=== PATIENT | male | born 1970 | race Caucasian/White ===

== ENCOUNTER 2024-04-22 20:11 | Emergency (ER) | payer OTHER, SELFPAY ==
[2024-04-22 20:13] VITALS: BP 136/95; PULSE 103; RESP 18; TEMP 36.6; O2SAT 97
--- OUTSIDE RECORDS SUMMARY | 2024-04-22 20:14 | XMS_ITS | Clinical Summary ---
Author Organization [facility] [place] [facility] [place] [address] Address [address] [place] [address] Care Team Providers Care Wrapping Machine Operator Name Role Phone Alicia Palacio NP Primary Care Provider Allergies No known active allergies Medications blood glucose diagnostic strip 2 (two) times a day 018 Active omega 3-nxh-yjv-fish oil 100-160-1,000 mg capsule 1,000 mg 2 (two) times a day Active diazePAM (VALIUM) 5 mg tabletIndications :Radiculopathy of cervical region Take 1 tablet (5 mg total) by mouth daily as needed for anxiety 4 tablet 023 Active Additional Information Patient not taking.Reported on 02/16/2023 cyclobenzaprine (FLEXERIL) 10 mg tablet Take 1 tablet (10 mg total) by mouth 3 (three) times a day as needed 024 Active clopidogreL (PLAVIX) 75 mg tablet Take 1 tablet (75 mg total) by mouth daily 90 tablet 3 024 Active empagliflozin (Jardiance) 25 mg tablet Take 1 tablet (25 mg total) by mouth daily 90 tablet 3 024 Active aspirin 325 mg tablet Take 1 tablet (325 mg total) by mouth daily Active insulin glargine (LANTUS) 100 unit/mL (3 mL) pen for injectionIndicati ons:Type 2 diabetes mellitus without complication, without long-term current use of insulin ([facility]) ([facility]) Inject 25 Units under the skin daily 15 mL 6 024 Active pen needle, diabetic 31 gauge x 5/16 needleIndications :Type 2 diabetes mellitus without complication, without long-term current use of insulin ([facility]) ([facility]) USE ONCE DAILY DIRECTED 100 each 6 Active pregabalin (LYRICA) 75 mg capsule Take 1 capsule (75 mg total) by mouth 2 (two) times a day 60 capsule 5 024 2024 Active glipiZIDE (GLUCOTROL) 5 mg tabletIndications :Type 2 diabetes mellitus without complication, without long-term current use of insulin ([facility]) ([facility]) Take 2 tablets by mouth twice daily before breakfast and lunch. 120 tablet 5 024 Active lisinopriL (PRINIVIL,ZESTRIL ) 10 mg tabletIndications :Essential hypertension Take 1 tablet by mouth once daily 90 tablet 025 Active atorvastatin (LIPITOR) 10 mg tabletIndications :Mixed hyperlipidemia Take 1 tablet by mouth once daily 90 tablet 025 Active metFORMIN (GLUCOPHAGE) 1,000 mg tabletIndications :Type 2 diabetes mellitus without complication, without long-term current use of insulin ([facility]) ([facility]) TAKE 1 TABLET BY MOUTH TWICE DAILY WITH MEALS 180 tablet 025 Active gemfibroziL (LOPID) 600 mg tabletIndications :Mixed hyperlipidemia Take 1 tablet by mouth twice daily 180 tablet 025 Active Mounjaro 2.5 mg/0.5 mL pen injector injectionIndicati ons:Type 2 diabetes mellitus with hyperglycemia, without long-term current use of insulin ([facility]) INJECT 2.5 MG SUBCUTANEOUSLY ONCE A WEEK 4 mL 025 Active Mounjaro 2.5 mg/0.5 mL pen injectorIndicatio ns:Type 2 diabetes mellitus with hyperglycemia, without long-term current use of insulin ([facility]) INJECT 1 SYRINGE SUBCUTANEOUSLY ONCE A WEEK 4 mL 024 2024 Discontinued Active Problems Problem Noted Date Diagnosed Date History of TIA (transient ischemic attack) 06/04 Overview (06/05/2023): Risk factor modification Sensorineural hearing loss (SNHL) of both ears 1 04/19/2022 Noise-induced hearing loss of both ears 02/17/20 Type 2 diabetes mellitus with hyperglycemia (CMS /HCC) 01/06/2022 Axillary abscess 09/03/2021 COVID-19 01/18/2020 Annual physical exam 01/24/2019 Assessment & Plan (02/19/2023 3:45 PM SPEECH ASSISTANT): Follow-up 1 year for annual physical. Continue eating healthy. Limit processed foods like white starches, fast food, sweets and soda. Increase your vegetable intake and limit red meat. Continue exercising and wearing your seatbelt at all times. No texting and driving. Continue to manage your stress in a healthy manner. Assessment & Plan (01/06/2022 9:17 AM CDT): Follow-up 1 year for annual physical. Continue eating healthy. Limit processed foods like white starches, fast food, sweets and soda. Increase your vegetable intake and limit red meat. Continue exercising and wearing your seatbelt at all times. No texting and driving. Continue to manage your stress in a healthy manner. Assessment & Plan (01/24/2019 9:20 AM SPEECH ASSISTANT): Follow-up 1 year for annual physical. Continue eating healthy. Limit processed foods like white starches, fast food, sweets and soda. Increase your vegetable intake and limit red meat. Continue exercising and wearing your seatbelt at all times. No texting and driving. Continue to manage your stress in a healthy manner. History of tetralogy of Fallot 01/24/2019 Radiculopathy of cervical region 04/04/2018 Sciatica of left side 12/19/2016 Essential hypertension 08/31/2014 Hyperlipidemia 08/31/2014 Type 2 diabetes mellitus wit hout complication, without long-term current use of insulin ([facility]) 08/31/2014 Immunizations Name Administration Dates Next Due Influenza, Unspecified 11/29/2023(Deferr ed: Patient Refused),01/17/2023(Deferred: Patient Refused),06/08/2022(Deferred: Patient Refused),04/13/2022(Deferred: Patient Refused) Tdap 06/06/2023 Surgical History Surgery Date Site/Laterality Comments TYMPANOSTOMY TUBE PLACEMENT 03/12/1979 - 03/11/1980 Guero shirley Medical History Medical History Date Comments Hyperlipidemia Hypertension Diabetes mellitus (HCC) Tetralogy of Fallot Heart disease HL (hearing loss) Type 2 diabetes mellitus (HCC) Family History Medical History Relation Name Comments Diabetes Father Hypertension Father Stroke Father Cancer Mother Diabetes Mother Hemochromatosis Mother Relation Name Status Comments Father Alive Mother Social History Tobacco Use Types Packs/Day Years Used Date Smoking Tobacco: Former Cigarettes 1 2011 Smokeless Tobacco: Never Tobacco Cessation:Counseling Given: Not Answered Alcohol Use Standard Drinks/Week Comments Never 0 (1 standard drink = 0.6 oz pur e alcohol) AUDIT-C Answer Date Recorded Frequency of Alcohol Consumption Not on file 04/12/2023 Q2: How many drinks containi ng alcohol do you have on a typical day when you are drinking? Patient does not drink Q3: How often do you have si x or more drinks on one occasion? Never 04/12/2023 PHQ-2 Answer Date Recorded PHQ-2 Total Score (If total score is 3 or more points, staff should administer the PHQ-9) 0 11/29/2023 Personal Safety Answer Date Recorded Getting School Help Needed Not on file 02/19 Sex and Gender Information Value Date Recorded Sex Assigned at Not on file Legal Sex Male 6:41 PM SPEECH ASSISTANT Gender Identity Not on file Sexual Orientation Not on file Obstetrics History Last Filed Vital Signs Vital Sign Reading Time Taken Comments Blood Pressure 122/74 11/29/2023 3:18 PM CDT Pulse 88 11/29/2023 3:18 PM CDT Temperature 36.6 C (97.9 F) 11/29/2023 3:18 PM CDT Respiratory Rate 18 11/29/2023 3:18 PM CDT Oxygen Saturation 97% 11/29/2023 3:18 PM CDT Inhaled Oxygen Concentration - - Weight 90.3 kg (199 lb) 11/29/2023 3:18 PM CDT Height 177.8 cm (5' 10 ) 11/29/2023 3:18 PM CDT Body Mass Index 28.55 11/29/2023 3:18 PM CDT Plan of Treatment Health Maintenance Due Date Last Done Comments Colon Cancer Screening-DNA Stool 1971 Hepatitis C Screening 1971 Dilated Eye Exam 1971 Pneumococcal vaccine <65 (1 of 2 - PCV) 1977 Hepatitis B Screening 1989 Zoster Vaccine (1 of 2) 2021 Foot Exam 01/27/2024 01/26/2023, 05/07/2022, 04/13/2022, Additional history exists Regular Well Visit/Exam 18-64 01/27/2024 01/26/2023, 01/06/2022, 01/24/2019 Hemoglobin A1C 05/26/2024 11/27/2023, 05/10, 01/22/2023, Additional history exists Influenza Vaccine (#1) 2024 Postp oned from 11/11/2023 (Patient declined, but will receive in the future) Albumin Creatinine Ratio, Urine 11/26/2024 11/27/2023, 01/22/2023, 01/02/2022 Lipid Panel 11/26/2024 11/27/2023, 01/10, 07/11/2022, Additional history exists eGFR 11/26/2024 11/27/2023, 05/10, 01/22/2023, Additional history exists Depression Screening 11/28/2024 11/29/2023, 08/16/2022, 09/13/2021, Additional history exists Prostate Cancer Screening-PSA 11/26/2025 11/27/2023, 01/22/2023, 01/02/2022, Additional history exists DTaP/Tdap/Td Vaccine (2 - Td or Tdap) 06/05/2033 06/06/2023 Procedures Procedure Name Priority Date/Time Associated Diagnosis Comments EGFR Routine 11/27/2023 6:09 AM CDT Type 2 diabetes mellitus with hyperglycemia, without long-term current use of insulin (CMS/HCC) (HCC) HEMOGLOBIN A1C Routine 11/27/2023 6:09 AM CDT Type 2 diabetes mellitus with hyperglycemia, without long-term current use of insulin (CMS/HCC) (HCC) LIPID PANEL Routine 11/27/2023 6:09 AM CDT Mixed hyperlipidemia PSA SCREEN Routine 11/27/2023 6:09 AM CDT Prostate cancer screening ALBUMIN CREATININE RATIO, URINE Routine 11/27/2023 6:06 AM CDT Type 2 diabetes mellitus with hyperglycemia, without long-term current use of insulin (CMS/HCC) (HCC) from Last 3 Months or Most Recently Relevant to Health Maintenance Results * eGFR (11/27/2023 6:09 AM CDT) eGFR >90 >=60 mL/min/1. 73 m2 Comment: Interpretive Data Reference Interval Normal >/= 90 mL/min/1.73m2 Mildly decreased* 60 - 89 mL/min/1.73m2 Mildly to moderately decreased 45 - 59 mL/min/1.73m2 Moderately to severely decreased 30 - 44 mL/min/1.73m2 Severely decreased 15 - 29 mL/min/1.73m2 Kidney Failure < 15 mL/min/1.73m2 *Relative to young adult level Estimated glomerular filtration rate is determined by the 2020 CKD-EPI equation recommended by the National Kidney Foundation (A Unifying Approach to GFR Estimation: Recommendations of the NKF-ASK Task Force on Reassessing the Inclusion of Race in Diagnosing Kidney Disease, JASN 2020). The CKD-EPI equation should not be used for patients with unstable renal function and has not been validated in children and those over 70. Current interpretive data was last reviewed 2021. Blood 11/27/2023 6:09 AM CDT 11/27/2023 7:57 AM CDT us Alicia Palacio NP LAB BLOOD ORDERABLES Fi nal Result [facility] [address] [facility] Department [place] [address] * PSA screen (11/27/2023 6:09 AM CDT) PSA-Total 0.26 <=3.90 ng/mL Comment: Interpretive Data AGE SEX REFERENCE INTERVAL 0 minutes-150 years Female None 0 minutes-49 years Male None 50-59 years Male 0-3.90 60-69 years Male 0-5.40 70-79 years Male 0-6.20 80-150 years Male 0-6.20 The Jessica PSA Total assay procedure was used. Results from different manufacturers or methods may not be comparable. Serial testing should be performed using the same method. Current interpretive data last revised 21. Blood 11/27/2023 6:09 AM CDT 11/27/2023 7:57 AM CDT Alicia Palacio LAB BLOOD ORDERABLES nal Result Performing Organization Address [facility] de Phone Number [address] [place] [address] * (ABNORMAL) Hemoglobin A1c (11/27/2023 6:09 AM CDT) Hgb A1C 8.8(H) 4.0 - 5.6 % Estimated Average Glucose 206 mg/dL [facility] Comment: The ADA recommends reporting an estimated Average Glucose (eAG) with all Hemoglobin A1c results using the equation derived from a study of 507 normal and diabetic adults. Minority populations were underrepresented and children were not included. (Diabetes Care 31:8106-4551, 2008). The eAG is not equivalent to a fasting glucose. Blood 11/27/2023 6:09 AM CDT 11/27/2023 7:57 AM CDT Alicia Palacio LAB BLOOD ORDERABLES nal Result Performing Organization Address [facility] de Phone Number [address] [place] [address] * (ABNORMAL) Lipid panel (11/27/2023 6:09 AM CDT) Cholesterol 147 30 - 199 mg/dL Comment: Interpretive Data Ages < or = 19 years Acceptable: <170 mg/dL Borderline high: 170-199 mg/dL High: >or= 200 mg/dL Ages > or = 20 years Desirable: <200 mg/dL Borderline high: 200-239 mg/dL High: >or= 240 mg/dL Literature References: 1. Expert Panel on Integrated Guidelines for Cardiovascular Health and Risk Reduction in Children and Adolescents. Pediatrics 2011;128:S213 2. NCEP Expert Panel. Circulation 2004;110:227 Current Interpretive Data was last revised on 2017. Triglycerides 169(H) <=149 mg/dL [facility] Comment: Interpretive Data Ages < or = 9 years Acceptable: <75 mg/dL Borderline high: 75-99 mg/dL High: >or= 100 mg/dL Ages 10 to 20 years Acceptable: <90 mg/dL Borderline high: 90-129 mg/dL High: >or= 130 mg/dL Ages > or = 20 years Desirable: <150 mg/dL Borderline high: 150-199 mg/dL High: 200-499 mg/dL Very high: >or= 499 mg/dL Literature References: 1. Expert Panel on Integrated Guidelines for Cardiovascular Health and Risk Reduction in Children and Adolescents. Pediatrics 2011;128:S213 2. NCEP Expert Panel. Circulation 2004;110:227 Current Interpretive Data was last revised on 2017. HDL 49 >=40 mg/dL [facility] Comment: Interpretive Data Ages < or = 19 years Acceptable: >45 mg/dL Borderline low: 40-45 mg/dL Low: <40 mg/dL Ages > or = 20 years Desirable: >or= 60 mg/dL Low: <40 mg/dL Literature References: 1. Expert Panel on Integrated Guidelines for Cardiovascular Health and Risk Reduction in Children and Adolescents. Pediatrics 2011;128:S213 2. NCEP Expert Panel. Circulation 2004;110:227 Current Interpretive Data was last revised on 2017. LDL, calculated 69 <=129 mg/dL [facility] Comment: Interpretive Data Ages < or = 19 years Acceptable: <110 mg/dL Borderline high: 110-129 mg/dL High: >or= 130 mg/dL Ages > or = 20 years Optimal: <100 mg/dL Near optimal: 100-129 mg/dL Borderline high: 130-159 mg/dL High: >160 mg/dL Calculated using the Padron LDL-C estimating equation. This equation was implemented on 2023. Prior to this date LDL-C was estimated using the Friedewald equation. Literature References: 1. Expert Panel on Integrated Guidelines for Cardiovascular Health and Risk Reduction in Children and Adolescents. Pediatrics 2011;128:S213 2. NCEP Expert Panel. Circulation 2004;110:227 3. Vito M et al. PARDEEP Cardiol. 2020 July 10;5(5):540-548. doi: 10.1001/jamacardio.2020.0013 Current Interpretive Data was last revised on 2023. Non-HDL Cholesterol 98 mg/dL [facility] Comment: Interpretive Data Ages < or = 19 years Acceptable: <120 mg/dL Borderline high: 120-144 mg/dL High: >145 mg/dL Ages > or = 20 years When triglycerides are >200 mg/dL, Non-HDL cholesterol is a secondary target of therapy with treatment goals that are 30 mg/dL greater than the LDL cholesterol target. Literature References: 1. Expert Panel on Integrated Guidelines for Cardiovascular Health and Risk Reduction in Children and Adolescents. Pediatrics 2011;128:S213 2. NCEP Expert Panel. Circulation 2004;110:227 Current Interpretive Data was last revised on 2017. Chol/HDL ratio 3 [facility] Blood 11/27/2023 6:09 AM CDT 11/27/2023 7:57 AM CDT us Alicia Palacio NP LAB BLOOD ORDERABLES nal Result [facility] [address] [facility] Department [place] [address] * (ABNORMAL) Albumin Creatinine Ratio, Urine (11/27/2023 6:06 AM CDT) Albumin Ur 26.2 mg/L Comment: Interpretive Data No reference range established. Current interpretive data was last revised 2018. Creatinine Ur 85.8 mg/dL [facility] Comment: Interpretive Data No reference range established. Current interpretive data was last revised 2018. Albumin Creatinine Ratio, Ur 31(H) 1 - 29 mg/g [facility] Urine 11/27/2023 6:06 AM CDT 11/27/2023 7:53 AM CDT Alicia Palacio NP LAB URINE ORDERABLES Fi nal Result [facility] [address] [facility] Department [place] [address] from Last 3 Months or Most Recently Relevant to Health Maintenance Insurance [facility] PLUS [facility] PLUS [facility] PLUS Care Teams Wrapping Machine Operator Relationship Specialty Start Date End Date Alicia Palacio NP [address] [address] PCP - General Family Practice 12/12/19
--- OUTSIDE RECORDS SUMMARY | 2024-04-22 20:14 | XMS_ITS | Clinical Summary ---
Author Organization [facility] Address [address] [place] [address] Care Team Providers Care Alterations Workroom Clerk Name Role Phone Alicia Palacio Primary Care Provider [phone] Allergies No known active allergies Medications atorvastatin (LIPITOR) 10 MG tablet Take 1 tablet (10 mg total) by mouth daily. Active TRULICITY 1.5 MG/0.5ML injection INJECT 1 SYRINGE SUBCUTANEOUSLY ONCE A WEEK Active JARDIANCE 25 MG tablet Take 1 tablet (25 mg total) by mouth daily. Active gemfibrozil (LOPID) 600 MG tablet Take 1 tablet (600 mg total) by mouth 2 (two) times daily. Active glipiZIDE (GLUCOTROL) 5 MG tablet TAKE 2 TABLETS BY MOUTH TWICE DAILY BEFORE BREAKFAST AND LUNCH Active LANTUS SOLOSTAR 100 UNIT/ML injection (PEN) INJECT 25 UNITS SUBCUTANEOUSLY ONCE DAILY 3 Active lisinopril (PRINIVIL) 10 MG tablet Take 1 tablet (10 mg total) by mouth daily. 3 Active metFORMIN (GLUCOPHAGE) 1000 MG tablet Take 1 tablet (1,000 mg total) by mouth 2 (two) times daily with meals. 3 Active RELION PEN NEEDLE 31G/8MM 31G X 8 MM Misc 2 (two) times daily. 3 Active Active Problems Problem Noted Date Diagnosed Date Axillary abscess 09/03/2021 COVID-19 01/18/2020 History of tetralogy of Fallot 01/24/2019 Radiculopathy of cervical region 04/04/2018 Essential hypertension 08/31/2014 Hyperlipidemia 08/31/2014 Type 2 diabetes mellitus wit hout complication, without long-term current use of insulin ([facility]) 08/31/2014 Immunizations Name Administration Dates Next Due Tdap (Boostrix) 06/06/2023 Family History Medical History Relation Comments Diabetes Father Cancer Mother Relation Status Comments Father Mother Social History Tobacco Use Types Packs/Day Years Used Date Smoking Tobacco: Former Cigarettes Q uit: 2011 Smokeless Tobacco: Never Tobacco Cessation:Counseling Given: Not Answered Alcohol Use Standard Drinks/Week Comments Not Currently 0 (1 standard drink = 0.6 oz pur e alcohol) AUDIT-C Answer Date Recorded Q1: How often do you have a drink containing alc ohol? Never 01/18/2020 Average Number of Drinks Not on file 020 Frequency of Binge Drinking Not on file 10/2019 PHQ-2 Answer Date Recorded Patient Health Questionnaire-2 Score 0 07/11/2022 Sex and Gender Information Value Date Recorded Sex Assigned at Not on file Legal Sex Male 2:30 AM CDT Gender Identity Not on file Sexual Orientation Not on file Last Filed Vital Signs Vital Sign Reading Time Taken Comments Blood Pressure 141/94 06/12/2023 6:45 PM CDT Pulse 76 06/12/2023 6:45 PM CDT Temperature 36.2 C (97.1 F) 06/12/2023 6:45 PM CDT Respiratory Rate 18 06/12/2023 6:45 PM CDT Oxygen Saturation 95% 06/12/2023 6:45 PM CDT Inhaled Oxygen Concentration - - Weight 86.2 kg (190 lb) 06/12/2023 6:45 PM CDT Height 177.8 cm (5' 10 ) 06/12/2023 6:45 PM CDT Body Mass Index 27.26 06/12/2023 6:45 PM CDT Plan of Treatment Health Maintenance Due Date Last Done Comments Colorectal Cancer Screening Colonoscopy (10 Years) 1971 Kidney Health Evaluation 1971 Annual Physical 1974 Pneumococcal Vaccine: Pediatrics (0 to 5 Years) and At-Risk Patients (6 to 64 Years) (1 of 2 - PCV) 1977 Diabetes: Retinopathy Eye Exam 1989 Hepatitis C 1989 Hepatitis B Vaccines (1 of 3 - 19+ 3-dose series) 1990 Zoster Vaccines (1 of 2) 2021 Lipid Panel 01/02/2023 01/02/2022, 08/11, 09/04/2021, Additional history exists PHQ-2 (Physician Inaja) 07/12/2023 07/11/2022 COVID-19 Vaccine ( season) 2023 Hemoglobin A1C 11/21/2023 05/21/2023, 01/10, 07/11/2022, Additional history exists Influenza Adult (#1) 2023 PHQ-2 (Physician Inaja) 03/12/2024 07/11/2022 DTaP, Tdap and Td Vaccines (2 - Td or Tdap) 06/05/2033 06/06/2023 Meningococcal B Vaccine Aged Out No l onger eligible based on patient's age to complete this topic Meningococcal Vaccine Aged Out No ankita madison eligible based on patient's age to complete this topic RSV Immunizations Under 20 Months Aged Out No longer eligible based on patient's age to complete this topic Goals Goal Patient Goal Type Associated Problems Recent Progress Patient-Stated? Author Safety - demonstrates understanding of home safety measures General No Edelmira Webster geological manager Procedure Name Priority Date/Time Associated Diagnosis Comments HEMOGLOBIN, GLYCOSYLATED Routine 09/05/2021 5:39 AM CDT LIPID PANEL Routine 09/04/2021 5:40 AM CDT from Last 3 Months or Most Recently Relevant to Health Maintenance Results * (ABNORMAL) HEMOGLOBIN, GLYCOSYLATED (09/05/2021 5:39 AM CDT) HGB A1C 14.6(H) <5.7 % 09/05/2021 8:55 AM CDT [facility] () [facility] Comment: ADA GUIDELINES 2010 5.7 TO 6.4% INCREASED RISK OF DIABETES > OR = 6.5% CONSISTENT WITH DIABETES [place] [address] ESTIMATED AVG GLUCOSE 372 mg/dL 09/05/2021 8:55 AM CDT [facility] 09/05/2021 5:39 AM CDT us Jagdeep Alcantar MD LABORATORY Final Result [facility] [address] [place] [address], * (ABNORMAL) LIPID PANEL (09/04/2021 5:40 AM CDT) CHOLESTEROL 218(H) <200 MG/DL 09/04/2021 7:12 AM CDT [facility] TRIGLYCERIDES 679(H) <150 MG/DL 09/04/2021 7:12 AM T [facility] HDL 42 >40.0 MG/DL 09/04/2021 7:12 AM T [facility] LDL (CALCULATED) TRIGLYCERIDES >400 MG/DL, SEE DIRECT LDL REPORT <100 MG/DL 09/04/2021 7:12 AM T [facility] Comment:TRIGLYCERIDE >400 IN VALIDATES FRACTIONATION. NON HDL CHOLESTEROL 176(H) <130 MG/DL 09/04/2021 7:12 AM T [facility] Comment: NOTE: WHEN THE TRIGLYCERIDES ARE >200 mg/dL, NON HDL C IS A SECONDARY TARGET OF THERAPY, WITH A GOAL 30 mg/dL HIGHER THAN THE IDENTIFIED LDL C GOAL. CHOL/HDL RATIO 5.2(H) 0.0 - 4.5 09/04/2021 7:12 AM T [facility] VLDL CALCULATION UNABLE TO CALCULATE RESULT 5 - 55 MG/DL 09/04/2021 7:12 AM T [facility] Comment:TRIGLYCERIDE >400 IN VALIDATES FRACTIONATION. LIPID INTERPRETATION 09/04/2021 7:12 AM T [facility] Comment: [facility] CONCENSUS REPORT RECOMMENDATIONS: ADULT CHILD LOW RISK: CHOLESTEROL <200 <170 TRIGLYCERIDE <150 --- HDL >=60 --- LDL <100 <110 BORDERLINE: CHOLESTEROL 200-239 170-199 TRIGLYCERIDE 150-199 --- HDL 40-59 --- LDL 100-159 110-129 HIGH RISK: CHOLESTEROL >=240 >=200 TRIGLYCERIDE >=200 --- HDL <40 --- LDL >=160 >=130 09/04/2021 5:40 AM CDT us Jagdeep Alcantar MD LABORATORY Final Result [facility] [address] [place] [address], from Last 3 Months or Most Recently Relevant to Health Maintenance Insurance [facility] Advance Directives Documents on File Type Date Recorded Patient Geochemical Manager Expl anation Legal Documents 05/23/2016 SLEGAL * Full Code (Latest Code Status on File) Date Activated Date Inactivated Comments 09/03/2021 7:01 PM 09/05/2021 4:38 PM * POLST Date Activated Date Inactivated Comments 01/18/2020 11:46 AM 01/20/2020 3:20 PM Question Answer Comments Cardiopulmonary Resuscitatio n (CPR) If patient has no pulse and is not breathing: ATTEMPT Resuscitation CPR Medical Interventions when N OT in Cardiopulmonary Arrest (If patient is found with a pulse and/or is breathing): Comfort Focused - Do NOT Intubate Artificially administered nutrition - Offer food by mouth, if feasible and desired: None - No Artificial Nutrition Documentation of discussion: [facility] Surrogate Decision Maker Alicja by phone does not want Intubation nor does the pt * Full Code Date Activated Date Inactivated Comments 01/18/2020 8:44 AM 01/18/2020 11:46 AM Care Teams Alterations Workroom Clerk Relationship Specialty Start Date End Date Alicia Palacio APNP PCP - General NURSE PRACTITIONER 11/22/20
--- OUTSIDE RECORDS SUMMARY | 2024-04-22 20:14 | XMS_ITS | Referral Summary ---
Author Organization [facility] [place] [address] Address [address] [place] [address] Care Team Providers Care Laborer Wrecking And Salvaging Name Role Phone Alicia Palacio NP Primary Care Provider Allergies No known active allergies Medications blood glucose diagnostic strip 2 (two) times a day 018 Active omega 9-ywe-dax-fish oil 100-160-1,000 mg capsule 1,000 mg 2 [...] complication, without long-term current use of insulin ([facility]/HCC) ([facility]) Inject 25 Units under the skin daily 15 mL 6 024 Active pen needle, diabetic 31 gauge x 5/16 needleIndications :Type 2 diabetes mellitus without complication, without long-term current use of insulin ([facility]) ([facility]) USE ONCE DAILY DIRECTED 100 each 6 Active pregabalin (LYRICA) 75 mg capsule Take 1 capsule (75 mg total) by mouth 2 (two) times a day 60 capsule 5 024 2024 Active glipiZIDE (GLUCOTROL) 5 mg tabletIndications :Type 2 diabetes mellitus without complication, without long-term current use of insulin ([facility]) ([facility]) Take 2 tablets by mouth twice daily [...] complication, without long-term current use of insulin ([facility]) ([facility]) TAKE 1 TABLET BY MOUTH TWICE DAILY WITH MEALS 180 tablet 025 Active gemfibroziL (LOPID) 600 mg tabletIndications :Mixed hyperlipidemia Take 1 tablet by mouth twice daily 180 tablet 025 Active Mounjaro 2.5 mg/0.5 mL pen injector injectionIndicati ons:Type 2 diabetes mellitus with hyperglycemia, without long-term current use of insulin ([facility]) INJECT 2.5 MG SUBCUTANEOUSLY ONCE A WEEK 4 mL 025 Active Mounjaro 2.5 mg/0.5 mL pen injectorIndicatio ns:Type 2 diabetes mellitus with hyperglycemia, without long-term current use of insulin ([facility]) INJECT 1 SYRINGE SUBCUTANEOUSLY ONCE A WEEK [...] 01/24/2019 Assessment & Plan (02/19/2023 3:45 PM TANDEM OPERATOR): Follow-up 1 year for annual physical. Continue [...] manner. Assessment & Plan (01/24/2019 9:20 AM TANDEM OPERATOR): Follow-up 1 year for annual physical. 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 Gender Identity Not on file Sexual Orientation [...] 11/29/2023 3:18 PM CDT Plan of Treatment Not on file Procedures Procedure Name Priority Date/Time Associated Diagnosis Comments EGFR Routine 11/27/2023 6:09 AM CDT Type 2 diabetes mellitus with hyperglycemia, without long-term current use of insulin ([facility]) ([facility]) HEMOGLOBIN A1C Routine 11/27/2023 6:09 AM CDT Type 2 diabetes mellitus with hyperglycemia, without long-term current use of insulin ([facility]) ([facility]) LIPID PANEL Routine 11/27/2023 6:09 AM CDT [...] LAB BLOOD ORDERABLES Fi nal Result RAMIRO [address] [facility] Department [place] [address] * PSA screen (11/27/2023 6:09 [...] AM CDT Alicia Palacio LAB BLOOD ORDERABLES Fi nal Result Performing Organization Address [facility] de Phone Number [address] [place] [address] * (ABNORMAL) Hemoglobin A1c (11/27/2023 6:09 AM CDT) Hgb A1C 8.8(H) 4.0 - 5.6 % Estimated Average Glucose 206 mg/dL [facility] Comment: The ADA recommends reporting an estimated Average Glucose (eAG) with all Hemoglobin A1c results using the equation derived from a study of 507 normal and diabetic adults. Minority populations were underrepresented and children were not included. (Diabetes Care 31:1288-9456, 2008). The eAG is not equivalent to a fasting glucose. Blood 11/27/2023 6:09 AM CDT 11/27/2023 7:57 AM CDT Alicia Palacio MANAGER LVN LAB BLOOD ORDERABLES Fi nal Result Performing Organization Address [facility] de Phone Number [address] [place] [address] * (ABNORMAL) Lipid panel (11/27/2023 6:09 AM CDT) Pathologist [facility] Cholesterol 147 30 - 199 mg/dL Comment: [...] NCEP Expert Panel. Circulation 2004;110:227 3. Vito Nassar et al. PARDEEP Cardiol. 2019July 10;5(5):540-548. doi: 10.1001/jamacardio.2020.0013 Current Interpretive Data was [...] last revised on 2017. Chol/HDL ratio 3 [facility] Blood 11/27/2023 6:09 AM CDT 11/27/2023 7:57 AM CDT Alicia Palacio NP LAB BLOOD ORDERABLES nal Result RAMIRO [address] [facility] [place] [address] * (ABNORMAL) Albumin Creatinine Ratio, Urine (11/27/2023 [...] NP LAB URINE ORDERABLES Fi nal Result ITANER [facility] [address] [facility] [place] [address] from Last 3 Months or Most Recently Relevant to Health Maintenance Insurance [facility] [employer] Care Teams Laborer Wrecking And Salvaging Relationship Specialty Start Date End Date Alicia Palacio NP [address] [facility] [address] [place] [address] PCP - General Family Practice 12/12/19
--- OUTSIDE RECORDS SUMMARY | 2024-04-22 20:14 | XMS_ITS | Encounter Summary ---
Author Organization [facility] Address [address] [place] [address] Care Team Providers Care Channel Partners Name Role Phone Ed Blevins DO Primary Care Provider [phone]- [phone] Alicia Palacio Primary Care Provider +1- [phone] Encounter Details Date Type Department Care Team (Latest Contact Info) Description 01/15/2018 Abstract [facility] Medical Group Krystin Cartwright MD Social History Tobacco Use Types Packs/Day Years Used Date Smoking Tobacco: Smoker, Current Status Unknown Sex and Gender Information Value Date Recorded Sex Assigned at Not on file Legal Sex Male 2:30 AM CDT Gender Identity Not on file Sexual Orientation Not on file documented as of this encounter Plan of Treatment Not on file documented as of this encounter Visit Diagnoses Not on filedocumented in this encounter Additional Health Concerns Infection Onset Date Last Indicated Resolved Time COVID-19 Rule Out 01/18/2020 01/18/2020 01/19/2020 10:56 PM MANAGER CLIENT SERVICE documented as of this encounter Care Teams Channel Partners Relationship Specialty Start Date End Date Ed Blevins DO PCP - General 03/20/16 01/17/20 Alicia Palacio APNP PCP - General NURSE PRACTITIONER 11/22/20 documented as of this encounter
--- NOTE | 2024-04-22 20:17 | ED.EYEPROB ---
HPI - Eye Problem General Chief complaint: Eye Problems Stated complaint: Eye Problem Time Seen by Provider: 04/22/24 20:17 Source: patient Mode of arrival: ambulatory Limitations: no limitations History of Present Illness HPI Narrative: grinding yesterday, possible foreign body at the left eye, patient washed and irrigated both eyes extensively . Still feels foreign body like feeling Related Data Home Medications ?Medication ?Instructions ?Recorded ?Confirmed ?Last Taken ?Type atorvastatin 10 mg tablet 10 mg PO DAILY 04/22/24 04/22/24 Unknown History glipizide 5 mg tablet 5 mg PO DAILY 04/22/24 04/22/24 Unknown History metformin 1,000 mg tablet 1,000 mg PO DAILY 04/22/24 04/22/24 Unknown History pregabalin 75 mg capsule 75 mg PO DAILY 04/22/24 04/22/24 Unknown History tirzepatide 2.5 mg/0.5 mL mg subcut 04/22/24 Unknown History subcutaneous pen injector (Mounjaro) Allergies Allergy/AdvReac Type Severity Reaction Status Date / Time No Known Allergies Allergy Verified 04/22/24 20:19 Review of Systems Review of Systems: All systems reviewed & are unremarkable except as noted in HPI and below Exam Narrative: General appearance: Well-developed, well-nourished Skin: Normal color Head: Normocephalic, nontraumatic Eyes: small foreign body less than 1 mm at the center of the pupil left eye otherwise within normal limit ENT: Oropharynx normal, ears normal, nose normal Neurologic: Alert and oriented ?3, Course Vital Signs Vital signs: Vital Signs Temperature 36.6 C 04/22/24 20:13 Pulse Rate 103 H 04/22/24 20:13 Respiratory Rate 18 04/22/24 20:13 Blood Pressure 136/95 H 04/22/24 20:13 Pulse Oximetry 97 04/22/24 20:13 Oxygen Delivery Room Air 04/22/24 20:13 Temperature 36.6 C 04/22/24 20:13 Pulse Rate 103 H 04/22/24 20:13 Respiratory Rate 18 04/22/24 20:13 Blood Pressure 136/95 H 04/22/24 20:13 Pulse Oximetry 97 04/22/24 20:13 Oxygen Delivery Room Air 04/22/24 20:13 Procedures FB Removal Eye Foreign Body #1: Foreign Body Removal Date: 04/22/24 Foreign Body Removal Time: 20:57 Time Out performed: Yes (5) Location: eye (L) Topical anesthetic used: tetracaine Foreign body: other Evidence of corneal penetration: No Technique: needle Procedure performed under: direct visualization with magnification Post-procedure medication: ophthalmic antibiotic and topical anesthetic Patient tolerated procedure: well and no complications Foreign Body Removal Narrative: different body with less than 1 mm, after using 18 gauge needle, no more foreign body available at this time. The procedure followed by left eye irrigation with normal saline, patient feeling much better, erythromycin eye ointment applied. Discharge Plan Discharge Clinical Impression: Foreign body in eyeball, left Patient Disposition: Home, Self-Care Condition: Improved Instructions: Eye Foreign Body (ED) Additional Instructions: Return if symptoms are worsening , call your family physician for appointment, take Tylenol as as needed for aches and pain, continue home medications. Patient Language: Persian Prescriptions: New erythromycin 5 mg/gram (0.5 %) ointment 0.5 inch LEFT EYE QID Qty: 1 0RF No Action atorvastatin 10 mg tablet 10 mg PO DAILY metformin 1,000 mg tablet 1,000 mg PO DAILY glipizide 5 mg tablet 5 mg PO DAILY pregabalin 75 mg capsule 75 mg PO DAILY Mounjaro 2.5 mg/0.5 mL pen injector SUBCUT Follow-up/Referrals: UNKNOWN,DOCTOR [Non-Staff] -
[2024-04-22 20:26] VITALS: BP 128/85; PULSE 90; RESP 16; O2SAT 98
[2024-04-22] MEDS: TETRACAINE HCL 0.5% OPHTH SOLN 4 ML BTL 1 DROP LEFT EYE (20:45)
[2024-04-22 21:30] VITALS: BP 125/89; PULSE 87; RESP 17; O2SAT 98
[2024-04-22] MEDS: ERYTHROMYCIN OPHTH OINTMENT 3.5 GM TUBE 1 APPLIC LEFT EYE (21:33)
== END 2024-04-22 21:30 | disposition home or self-care (01) ==
PROVIDERS: Emergency Provider Emergency Medicine
DX: T15.92XA Foreign body on external eye, part unspecified, left eye, initial encounter (principal); Z79.899 Other long term (current) drug therapy; W44.9XXA Unspecified foreign body entering into or through a natural orifice, initial encounter
CPT/HCPCS: 65220; 99283; A9270

== ENCOUNTER 2024-06-24 20:08 | Emergency (ER) | payer BC, SELFPAY ==
--- OUTSIDE RECORDS SUMMARY | 2024-06-24 20:10 | XMS_ITS | Encounter Summary ---
Author Organization [facility] Address [address] [place] [address] Care Team Providers Care Canvas Cutter Name Role Phone Ed Blevins DO Primary Care Provider [phone]- [phone] Alicia Palacio Primary Care Provider +1- [phone] Encounter Details Date Type Department Care Team (Latest Contact Info) Description 01/15/2018 Abstract [facility] Medical Group Krystin Cartwright MD [...] Rule Out 01/18/2020 01/18/2020 01/19/2020 10:56 PM SECURITY SOFTWARE ENGINEER documented as of this encounter Care Teams Canvas Cutter Relationship Specialty Start Date End Date Ed Blevins DO PCP - General 03/20/16 01/17/20 Alicia Palacio APNP PCP - General NURSE PRACTITIONER 11/22/20 documented as of this encounter
[2024-06-24 20:11] VITALS: BP 126/101; PULSE 86; RESP 18; TEMP 36.4; O2SAT 97
--- OUTSIDE RECORDS SUMMARY | 2024-06-24 20:11 | XMS_ITS | Clinical Summary ---
Author Organization [facility] [address] Address [address] [place] [address] Care Team Providers Care Head Pumper Name Role Phone Alicia Palacio NP Primary Care Provider Allergies No known active allergies Medications blood glucose diagnostic strip 2 (two) times a day 018 Active omega 9-tvz-rih-fish oil 100-160-1,000 mg capsule 1,000 mg 2 [...] complication, without long-term current use of insulin (HCC) Inject 25 Units under the skin daily 15 mL 6 024 Active pen needle, diabetic 31 gauge x 5/16 needleIndications :Type 2 diabetes mellitus without complication, without long-term current use of insulin (HCC) USE ONCE DAILY DIRECTED 100 each 6 024 Active lisinopriL (PRINIVIL,ZESTRIL ) 10 mg tabletIndications :Essential hypertension Take 1 tablet by mouth once daily 90 tablet 025 Active atorvastatin (LIPITOR) 10 mg tabletIndications :Mixed hyperlipidemia Take 1 tablet by mouth once daily 90 tablet 025 Active metFORMIN (GLUCOPHAGE) 1,000 mg tabletIndications :Type 2 diabetes mellitus without complication, without long-term current use of insulin (HCC) TAKE 1 TABLET BY MOUTH TWICE DAILY WITH MEALS 180 tablet 025 Active gemfibroziL (LOPID) 600 mg tabletIndications :Mixed hyperlipidemia Take 1 tablet by mouth twice daily 180 tablet 025 Active Mounjaro 2.5 mg/0.5 mL pen injector injectionIndicati ons:Type 2 diabetes mellitus with hyperglycemia, without long-term current use of insulin (HCC) INJECT 2.5 MG SUBCUTANEOUSLY ONCE A WEEK 4 mL 025 Active empagliflozin (Jardiance) 25 mg tablet Take 1 tablet (25 mg total) by mouth daily 90 tablet 1 025 Active glipiZIDE (GLUCOTROL) 5 mg tabletIndications :Type 2 diabetes mellitus without complication, without long-term current use of insulin (HCC) TAKE 2 TABLETS BY MOUTH TWICE DAILY BEFORE BREAKFAST AND LUNCH 120 tablet 1 025 Active pregabalin (LYRICA) 75 mg capsule Take 1 capsule by mouth twice daily 60 capsule 025 Active pregabalin (LYRICA) 75 mg capsule Take 1 capsule (75 mg total) by mouth 2 (two) times a day 60 capsule 5 024 2024 Discontinued Active Problems Problem Noted Date Diagnosed Date History of TIA (transient ischemic attack) 06/04 Overview (06/05/2023): Risk factor modification Sensorineural hearing loss (SNHL) of both ears 1 04/19/2022 Noise-induced hearing loss of both ears 02/17/20 23 Type 2 diabetes mellitus with hyperglycemia 12/11 Axillary abscess 09/03/2021 COVID-19 01/18/2020 Annual physical exam 01/24/2019 Assessment & Plan (02/19/2023 3:45 PM FRONT ELEVATOR OPERATOR): Follow-up 1 year for annual physical. [...] manner. Assessment & Plan (01/24/2019 9:20 AM FRONT ELEVATOR OPERATOR): Follow-up 1 year for annual physical. [...] without long-term current use of insulin ([facility]) 08/31/2014 Immunizations Immunization Administration Dates Next Due Influenza, Unspecified 11/29/2023(Deferr ed: Patient Refused),01/17/2023(Deferred: Patient Refused),06/08/2022(Deferred: Patient Refused),04/13/2022(Deferred: Patient Refused) Tdap 06/06/2023 Surgical History Surgery Date Site/Laterality Comments TYMPANOSTOMY TUBE PLACEMENT 03/12/1979 - 03/11/1980 [facility] Medical History Medical History Date Comments Hyperlipidemia [...] Used Date Smoking Tobacco: Former Cigarettes 1 7 - 2011 Smokeless Tobacco: Never Tobacco Cessation:Counseling Given: [...] on file Legal Sex Male 6:41 PM FRONT ELEVATOR 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 Gender Identity Not on file Sexual [...] C Screening 1971 Dilated Eye Exam 1971 Hepatitis B Screening 1989 Pneumococcal vaccine <65 (1 of 2 - PCV) 1990 Zoster Vaccine (1 of 2) 2021 Foot Exam 01/27/2024 01/26/2023, 05/0 07/2022, 04/13/2022, Additional history exists Regular Well Visit/Exam 18-64 01/27/2024, 01/06/2022, 01/24/2019 Hemoglobin A1C 05/26/2024 11/27/2023, 05/10, 01/22/2023, Additional history exists Influenza Vaccine (Season Ended) 2024 Albumin Creatinine Ratio, Urine 11/26/2024 11/27/2023, 01/22/2023, 01/02/2022 Lipid Panel 11/26/2024 11/27/2023, 01/10, 07/11/2022, Additional history exists eGFR 11/26/2024 11/27/2023, 05/10, 01/22/2023, Additional history exists Depression Screening 11/28/2024 11/29/2023, 08/16/2022, 09/13/2021, Additional history exists Prostate Cancer Screening-PSA 11/26/2025, 01/22/2023, 01/02/2022, Additional history exists DTaP/Tdap/Td Vaccine (2 - Td or Tdap) 06/05/2033 06/06/2023 Procedures Procedure Name Priority Date/Time Associated Diagnosis Comments EGFR Routine 11/27/2023 6:09 AM CDT Type 2 diabetes mellitus with hyperglycemia, without long-term current use of insulin (HCC) HEMOGLOBIN A1C Routine 11/27/2023 6:09 AM CDT Type 2 diabetes mellitus with hyperglycemia, without long-term current use of insulin (HCC) LIPID PANEL Routine 11/27/2023 6:09 AM CDT Mixed hyperlipidemia PSA SCREEN Routine 11/27/2023 6:09 AM CDT Prostate cancer screening ALBUMIN CREATININE RATIO, URINE Routine 11/27/2023 6:06 AM CDT Type 2 diabetes mellitus with hyperglycemia, without long-term current use of insulin (HCC) from Last 3 Months or Most [...] CDT Alicia Palacio NP LAB BLOOD ORDERABLES [facility] Result ITANER [address] [facility] Department of Laboratories [place], [place] [id number] * PSA screen (11/27/2023 6:09 AM CDT) [...] CDT 11/27/2023 7:57 AM CDT Alicia Palacio ROOM SERVICE SERVER LAB BLOOD ORDERABLES [facility] Result Performing Organization Address [facility] de Phone Number [address] [address] * (ABNORMAL) Hemoglobin A1c (11/27/2023 6:09 AM CDT) Hgb A1C 8.8(H) 4.0 - 5.6 % Estimated Average Glucose 206 mg/dL [facility] Comment: The ADA recommends reporting an estimated Average Glucose (eAG) with all Hemoglobin A1c results using the equation derived from a study of 507 normal and diabetic adults. Minority populations were underrepresented and children were not included. (Diabetes Care 31:8936-8354, 2008). The eAG is not equivalent to a fasting glucose. Blood 11/27/2023 6:09 AM CDT 11/27/2023 7:57 AM CDT Alicia Palacio NP LAB BLOOD ORDERABLES Fi nal Result Performing Organization Address [facility] Co de Phone Number [address] [address] * (ABNORMAL) Lipid panel (11/27/2023 6:09 AM [...] mg/dL High: >160 mg/dL Calculated using the Vito LDL-C estimating equation. This equation was implemented on 2023. Prior to this date LDL-C was estimated using the Friedewald equation. Literature References: 1. Expert Panel on Integrated Guidelines for Cardiovascular Health and Risk Reduction in Children and Adolescents. Pediatrics 2011;128:S213 2. NCEP Expert Panel. Circulation 2004;110:227 3. Vito Telles al. PARDEEP Cardiol. 2020 July 10;5(5):540-548. doi: 10.1001/jamacardio.2020.0013 Current Interpretive Data was last revised on 2023. Non-HDL Cholesterol 98 mg/dL [facility] Comment: Interpretive Data Ages < or = [...] last revised on 2017. Chol/HDL ratio 3 [facility] Blood 11/27/2023 6:09 AM CDT 11/27/2023 7:57 AM CDT Alicia Palacio LAB BLOOD ORDERABLES Fi nal Result Performing Organization Address [facility] Co de Phone Number [address] [place] [address] * (ABNORMAL) Albumin Creatinine Ratio, Urine (11/27/2023 6:06 AM CDT) Albumin Ur 26.2 mg/L Comment: Interpretive Data No reference range established. Current interpretive data was last revised 2018. Creatinine Ur 85.8 mg/dL [facility] Comment: Interpretive Data No reference range established. Current interpretive data was last revised 2018. Albumin Creatinine Ratio, Ur 31(H) 1 - 29 mg/g [facility] Urine 11/27/2023 6:06 AM CDT 11/27/2023 7:53 AM CDT Alicia Palacio NP LAB URINE ORDERABLES Fi nal Result Performing Organization Address [facility] Co de Phone Number [address] [place] [address] from Last 3 Months or Most Recently Relevant to Health Maintenance Insurance Care Teams Head Pumper Relationship Specialty Start Date End Date Alicia Palacio NP [address] [facility] [address] [place] [address] PCP - General Family Practice 12/12/19
--- OUTSIDE RECORDS SUMMARY | 2024-06-24 20:11 | XMS_ITS | Referral Summary ---
Author Organization [facility] [address] Address [address] [place] [address] Care Team Providers Care Senior Support Analyst Name Role Phone Alicia Palacio NP Primary Care Provider Allergies No known active allergies Medications blood glucose diagnostic strip 2 (two) times a day 018 Active omega 6-gnm-wwx-fish oil 100-160-1,000 mg capsule 1,000 mg 2 [...] 01/24/2019 Assessment & Plan (02/19/2023 3:45 PM PLUMBER ASSISTANT): Follow-up 1 year for annual physical. [...] manner. Assessment & Plan (01/24/2019 9:20 AM PLUMBER ASSISTANT): Follow-up 1 year for annual physical. [...] use of insulin ([facility]) 08/31/2014 Immunizations Immunization Administration Dates Next Due [...] on file Legal Sex Male 6:41 PM PLUMBER ASSISTANT Gender Identity Not on file Sexual [...] NP LAB BLOOD ORDERABLES Fi nal [facility] [address] [facility] Department [place] [address] * PSA screen (11/27/2023 6:09 [...] BLOOD ORDERABLES nal Result Performing Organization Address [facility] Phone Number [address] [address] * (ABNORMAL) Hemoglobin A1c (11/27/2023 6:09 AM CDT) Hgb A1C 8.8(H) 4.0 - 5.6 % Estimated Average Glucose 206 mg/dL [facility] Comment: The ADA recommends reporting an estimated Average Glucose (eAG) with all Hemoglobin A1c results using the equation derived from a study of 507 normal and diabetic adults. Minority populations were underrepresented and children were not included. (Diabetes Care 31:8881-9901, 2008). The eAG is not equivalent to a fasting glucose. Blood 11/27/2023 6:09 AM CDT 11/27/2023 7:57 AM CDT Alicia Palacio LAB BLOOD ORDERABLES [facility] Result Performing Organization Address [facility] de Phone Number [address] [address] * (ABNORMAL) Lipid panel (11/27/2023 6:09 AM [...] 3. Vito Nassar et al. PARDEEP Cardiol. 2020 July 10;5(5):540-548. [...] last revised on 2017. Chol/HDL ratio 3 [facility] Blood 11/27/2023 6:09 AM CDT 11/27/2023 7:57 AM CDT Alicia Palacio NP LAB BLOOD ORDERABLES Fi nal Result Performing Organization Address [facility] Co de Phone Number [address] [place] [address] * (ABNORMAL) Albumin Creatinine Ratio, Urine (11/27/2023 6:06 AM CDT) Albumin Ur 26.2 mg/L Comment: Interpretive Data No reference range established. Current interpretive data was last revised 2018. Creatinine Ur 85.8 mg/dL [facility] Comment: Interpretive Data No reference range established. Current interpretive data was last revised 2018. Albumin Creatinine Ratio, Ur 31(H) 1 - 29 mg/g [facility] Urine 11/27/2023 6:06 AM CDT 11/27/2023 7:53 AM CDT Alicia Palacio NP LAB URINE ORDERABLES Fi nal Result Performing Organization Address [facility] Co de Phone Number [address] [place] [address] from Last 3 Months or Most Recently Relevant to Health Maintenance Insurance [facility] Address: [place] [address] [facility] [employer] [place]: [place] [address] [facility] [employer] [facility] [employer] Address: [address] [address] [place] [address] Care Teams Senior Support Analyst Relationship Specialty Start Date End Date Alicia Palacio NP [address] [facility] [address] [place] [address] PCP - General Family Practice 12/12/19
--- OUTSIDE RECORDS SUMMARY | 2024-06-24 20:11 | XMS_ITS | Clinical Summary ---
Author Organization [facility] Address [address] [place] [address] Care Team Providers Care Tax Specialist Name Role Phone Alicia Palacio Primary Care Provider +1- [phone] Allergies No known active allergies Medications atorvastatin [...] complication, without long-term current use of insulin ([facility]) 08/31/2014 Immunizations Immunization Administration Dates Next Due Tdap (Boostrix) 06/06/2023 [...] Kidney Health Evaluation 1971 Annual Physical 1974 Diabetes: Retinopathy Eye Exam 1989 Hepatitis C 1989 Hepatitis B Vaccines (1 of 3 - 19+ 3-dose series) 1990 Pneumococcal Vaccine: 50+ Years (1 of 2 - PCV) 1990 Zoster Vaccines (1 of 2) 2021 Lipid Panel 01/02/2023 01/02/2022, 08/11, 09/04/2021, Additional history exists COVID-19 Vaccine ( - 2023- season) 2023 Hemoglobin A1C 11/21/2023 05/21/2023, 01/10, 07/11/2022, Additional history exists PHQ-2 (Physician Daisy) 03/12/2024 07/11/2022 DTaP, Tdap and Td Vaccines [...] home safety measures General 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 Procedure Name Priority Date/Time Associated Diagnosis Comments HEMOGLOBIN, GLYCOSYLATED Routine 09/05/2021 5:39 AM CDT LIPID PANEL Routine 09/04/2021 5:40 AM CDT from Last 3 Months or Most Recently Relevant to Health Maintenance Results * (ABNORMAL) HEMOGLOBIN, GLYCOSYLATED (09/05/2021 5:39 AM CDT) HGB A1C 14.6(H) <5.7 % 09/05/2021 8:55 AM CDT [facility] Comment: ADA GUIDELINES 2010 5.7 TO 6.4% INCREASED RISK OF DIABETES > OR = 6.5% CONSISTENT WITH DIABETES [place] [address] ESTIMATED AVG GLUCOSE 372 mg/dL 09/05/2021 8:55 AM CDT [facility] 09/05/2021 5:39 AM CDT Jagdeep Alcantar MD LABORATORY Final Result [facility] [address] [place] [address], * (ABNORMAL) LIPID PANEL (09/04/2021 5:40 AM CDT) CHOLESTEROL 218(H) <200 MG/DL 09/04/2021 7:12 AM CDT [facility] TRIGLYCERIDES 679(H) <150 MG/DL 09/04/2021 7:12 AM CDT [facility] HDL 42 >40.0 MG/DL 09/04/2021 7:12 AM [facility] LDL (CALCULATED) TRIGLYCERIDES >400 MG/DL, SEE DIRECT LDL REPORT <100 MG/DL 09/04/2021 7:12 AM T [facility] Comment:TRIGLYCERIDE >400 IN VALIDATES FRACTIONATION. NON HDL CHOLESTEROL 176(H) <130 MG/DL 09/04/2021 7:12 AM T [facility] Comment: NOTE: WHEN THE TRIGLYCERIDES ARE >200 mg/dL, NON HDL C IS A SECONDARY TARGET OF THERAPY, WITH A GOAL 30 mg/dL HIGHER THAN THE IDENTIFIED LDL C GOAL. CHOL/HDL RATIO 5.2(H) 0.0 - 4.5 09/04/2021 7:12 AM T [facility] VLDL CALCULATION UNABLE TO CALCULATE RESULT 5 - 55 MG/DL 09/04/2021 7:12 AM T [facility] Comment:TRIGLYCERIDE >400 IN VALIDATES FRACTIONATION. LIPID INTERPRETATION 09/04/2021 7:12 AM T [facility] Comment: NIH CONCENSUS REPORT RECOMMENDATIONS: ADULT CHILD LOW RISK: CHOLESTEROL <200 <170 TRIGLYCERIDE <150 --- HDL >=60 --- LDL <100 <110 BORDERLINE: CHOLESTEROL 200-239 170-199 TRIGLYCERIDE 150-199 --- HDL 40-59 --- LDL 100-159 110-129 HIGH RISK: CHOLESTEROL >=240 >=200 TRIGLYCERIDE >=200 --- HDL <40 --- LDL >=160 >=130 09/04/2021 5:40 AM CDT Jagdeep Alcantar MD LABORATORY Final Result [facility] [address] [place] [address], from Last 3 Months or Most Recently Relevant to Health Maintenance Insurance [facility] Advance Directives Documents on File Type Date Recorded 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
--- NOTE | 2024-06-24 20:29 | ED.UPPEXIN ---
HPI - Extremity Injury (Upper) General Chief Complaint: Extremity Injury, Upper Stated Complaint: EYE PROBLEM Time Seen by Provider: 06/24/24 20:09 Source: patient Mode of arrival: ambulatory Limitations: no limitations History of Present Illness HPI narrative: patient is a 54-year-old male with a significant past medical history that presents today for multiple complaints. His 1st complaint is that he has medial epicondylitis on his right elbow. He states he has been having this pain for about a week now. He states that he does do a job with repetitive motions and does a lot a lifting. And it hurts on his medial epicondyle. He also has left eye pain. His left thigh is red on the upper eyelid and looking close enough he can see a stye formation on the corner of the medial corner of the left eye. MD complaint: injury to: right and elbow Onset (ago): week(s) Other Extremity Injury: Right: elbow Handedness: right Place: work Severity: mild Severity scale (1-10): 2 Relieving factors: none Exacerbating factors: none Context: injury Associated symptoms: weakness Related Data Home Medications ?Medication ?Instructions ?Recorded ?Confirmed ?Last Taken ?Type atorvastatin 10 mg tablet 10 mg PO DAILY 04/22/24 04/22/24 Unknown History glipizide 5 mg tablet 5 mg PO DAILY 04/22/24 04/22/24 Unknown History metformin 1,000 mg tablet 1,000 mg PO DAILY 04/22/24 04/22/24 Unknown History pregabalin 75 mg capsule 75 mg PO DAILY 04/22/24 04/22/24 Unknown History tirzepatide 2.5 mg/0.5 mL mg subcut 04/22/24 Unknown History subcutaneous pen injector (Mounjaro) Allergies Allergy/AdvReac Type Severity Reaction Status Date / Time No Known Allergies Allergy Verified 06/24/24 20:19 Review of Systems Review of Systems: All systems reviewed & are unremarkable except as noted in HPI and below Constitutional: Constitutional: Reports no additional constitutional complaints Eyes: Eyes: Reports as per HPI Comments: Stye and left eye and left upper eyelid cellulitis ENT: Reports system reviewed and no additional complaints, except as documented Cardiovascular: Cardiovascular: Reports no additional cardiovascular complaints Respiratory: Respiratory: Reports no additional respiratory complaints Gastrointestinal: Gastrointestinal: Reports no additional gastrointestinal complaints Genitourinary: Genitourinary: Reports no additional male genitourinary complaints Musculoskeletal: Musculoskeletal: Reports no additional musculoskeletal complaints Integumentary/Breasts: Skin/Breast: Reports system reviewed and no additional complaints, except as docu Neurologic: Reports system reviewed and no additional complaints, except as documented Psychiatric: Psychiatric: Reports no additional psychiatric complaints Endocrine: Endocrine: Reports no additional endocrine complaints Hematologic/Lymphatic: Hematologic/Lymphatic: Reports no additional hematologic/lymphatic complaints Allergic/Immunologic: Allergic/Immunologic: Reports no additional allergic/immunologic complaints Exam Const: General: healthy appearing Nutritional Appearance: well nourished Orientation/consciousness: patient oriented x3 HENMT: Head: normal to inspection Ears: external ears normal Face/Nose/Sinus: Normal external nose present Face and sinus: normal facial exam Mouth: Yes Normal oral and palatal mucosa present Eyes: Conjunctivae: conjunctivae normal Pupils: Equal, round and reactive pupils present EOM: EOMs intact bilaterally Neck: Neck: normal visual inspection Chest: Chest palpation & inspection: normal inspection of the chest Resp: Effort & Inspection: normal respiratory effort Auscultation: clear to auscultation bilaterally Cardio: Rate: regular rate Rhythm: regular rhythm GI: GI Palp: Yes Soft to palpation Back/Spine/Pelvis: Back: no CVA tenderness Skin: General skin exam: normal color Rashes: no rashes Wounds: no wounds Neuro: General: patient oriented x3 Cranial nerves: Yes Nystagmus not present Speech: normal speech Extrem: General: normal to inspection Psych: Mental Status: mental status grossly normal Affect: normal affect Attitude: cooperative Course Vital Signs Vital signs: Vital Signs Temperature 97.6 F 06/24/24 20:11 Pulse Rate 86 06/24/24 20:11 Respiratory Rate 18 06/24/24 20:11 Blood Pressure 126/101 H 06/24/24 20:11 Pulse Oximetry 97 06/24/24 20:11 Oxygen Delivery Room Air 06/24/24 20:11 Temperature 97.6 F 06/24/24 20:11 Pulse Rate 86 06/24/24 20:11 Respiratory Rate 18 06/24/24 20:11 Blood Pressure 126/101 H 06/24/24 20:11 Pulse Oximetry 97 06/24/24 20:11 Oxygen Delivery Room Air 06/24/24 20:11 MDM - Extremity Injury (Upper) Differential Diagnosis Differential diagnosis: Likely other ( right lateral epicondylitis, left eye stye, left eyelid cellulitis) Medical Records Attestation: I reviewed the patient's medical records. Lab Data Attestation: I reviewed the patient's lab results. Discharge Plan Discharge Clinical Impression: Medial epicondylitis of elbow, Hordeolum eyelid, Stye Patient Disposition: Home Condition: Stable Instructions: Antibiotic Paul Parra (ED) Patient Language: Costa Rican Prescriptions: New doxycycline hyclate 100 mg tablet 100 mg PO BID Qty: 20 0RF polymyxin B sulf-trimethoprim 10,000 unit- 1 mg/mL drops 1 drp LEFT EYE Q3H 7 Days Qty: 10 0RF Rx Instructions: while awake; do not exceed 6 doses in 24 hours No Action atorvastatin 10 mg tablet 10 mg PO DAILY metformin 1,000 mg tablet 1,000 mg PO DAILY glipizide 5 mg tablet 5 mg PO DAILY pregabalin 75 mg capsule 75 mg PO DAILY Mounjaro 2.5 mg/0.5 mL pen injector SUBCUT erythromycin 5 mg/gram (0.5 %) ointment 0.5 inch LEFT EYE QID Qty: 1 0RF Follow-up/Referrals: Alicia Palacio, ARRT [Primary Care Provider] - Time of Disposition: 20:49
[2024-06-24] MEDS: dexAMETHasone SOD PHOS INJ 10 MG/ML 1 ML VIAL 6 MG IV PUSH (20:52)
[2024-06-24] MEDS: LIDOCAINE 1% LOCAL INJ 10 ML VIAL 5 ML INFILTRATE (20:53)
--- OUTSIDE RECORDS SUMMARY | 2024-06-24 20:56 | XMS_ITS | Referral Summary ---
Author Organization [facility] [address] Address [address] [place] [address] Care Team Providers Care Speech Pathologist Name Role Phone Alicia Palacio NP Primary Care Provider Allergies No known active allergies Medications blood glucose diagnostic strip 2 (two) times a day 018 Active omega 0-pjk-frv-fish oil 100-160-1,000 mg capsule 1,000 mg 2 [...] 01/24/2019 Assessment & Plan (02/19/2023 3:45 PM RN PEDIATRIC ICU): Follow-up 1 year for annual physical. Continue [...] manner. Assessment & Plan (01/24/2019 9:20 AM RN PEDIATRIC ICU): Follow-up 1 year for annual physical. Continue [...] complication, without long-term current use of insulin ([facility]) 08/31/2014 Immunizations Immunization Administration Dates Next [...] on file Legal Sex Male 6:41 PM RN PEDIATRIC ICU Gender Identity Not on file Sexual Orientation [...] NP LAB BLOOD ORDERABLES Fi nal Result [facility] [address] [facility] Department [place] [address] * PSA screen (11/27/2023 6:09 [...] BLOOD ORDERABLES nal Result Performing Organization Address [facility] Phone Number [address] [address] * (ABNORMAL) Hemoglobin A1c (11/27/2023 6:09 AM CDT) Hgb A1C 8.8(H) 4.0 - 5.6 % Estimated Average Glucose 206 mg/dL [facility] Comment: The ADA recommends reporting an estimated Average Glucose (eAG) with all Hemoglobin A1c results using the equation derived from a study of 507 normal and diabetic adults. Minority populations were underrepresented and children were not included. (Diabetes Care 31:8578-4030, 2008). The eAG is not equivalent to a fasting glucose. Blood 11/27/2023 6:09 AM CDT 11/27/2023 7:57 AM CDT Alicia Palacio LAB BLOOD ORDERABLES [facility] Result Performing Organization Address [facility] de Phone Number [address] [address] * (ABNORMAL) Lipid panel (11/27/2023 6:09 AM [...] last revised on 2017. Chol/HDL ratio 3 [facility] Blood 11/27/2023 6:09 AM CDT 11/27/2023 7:57 AM CDT Alicia Palacio NP LAB BLOOD ORDERABLES Fi nal Result Performing Organization Address [facility] Co de Phone Number [address] [employer] [place] [address] * (ABNORMAL) Albumin Creatinine Ratio, Urine (11/27/2023 6:06 AM CDT) Albumin Ur 26.2 mg/L Comment: Interpretive Data No reference range established. Current interpretive data was last revised 2018. Creatinine Ur 85.8 mg/dL [facility] Comment: Interpretive Data No reference range established. Current interpretive data was last revised 2018. Albumin Creatinine Ratio, Ur 31(H) 1 - 29 mg/g [facility] Urine 11/27/2023 6:06 AM CDT 11/27/2023 7:53 AM CDT Alicia Palacio NP LAB URINE ORDERABLES Fi nal Result Performing Organization Address [facility] Co de Phone Number [address] [employer] [place] [address] from Last 3 Months or Most Recently Relevant to Health Maintenance Insurance [facility] Address: [place] [address] [facility] [place] [address] [facility] CHOICE PLUS [facility] Address: [address] [address] [place] [address] Care Teams Speech Pathologist Relationship Specialty Start Date End Date Alicia Palacio NP [address] [facility] [address] [place] [address] PCP - General Family Practice 12/12/19
--- OUTSIDE RECORDS SUMMARY | 2024-06-24 20:56 | XMS_ITS | Clinical Summary ---
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 Continue [...] manner. Assessment & Plan (01/24/2019 9:20 AM WEB PROGRAMMER): Follow-up 1 year for annual physical. 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 de Phone Number [address] [address] * (ABNORMAL) Hemoglobin A1c (11/27/2023 6:09 AM CDT) Hgb A1C 8.8(H) 4.0 - 5.6 % Estimated Average Glucose 206 mg/dL [facility] Comment: The ADA recommends reporting an estimated Average Glucose (eAG) with all Hemoglobin A1c results using the equation derived from a study of 507 normal and diabetic adults. Minority populations were underrepresented and children were not included. (Diabetes Care 31:5440-6833, 2008). The eAG is not equivalent to a fasting glucose. Blood 11/27/2023 6:09 AM CDT 11/27/2023 7:57 AM CDT Alicia Palacio NP LAB BLOOD ORDERABLES Fi nal Result Performing Organization Address [facility] Co de Phone Number [address] [address] * (ABNORMAL) Lipid panel (11/27/2023 6:09 AM [...] revised on 2023. Non-HDL Cholesterol 98 mg/dL [facility] Comment: Interpretive Data Ages < or = [...] last revised on 2017. Chol/HDL ratio 3 [facility] Blood 11/27/2023 6:09 AM CDT 11/27/2023 7:57 AM CDT Alicia Palacio LAB BLOOD ORDERABLES Fi nal Result Performing Organization Address [facility] Co de Phone Number [address] [employer] [place] [address] * (ABNORMAL) Albumin Creatinine Ratio, Urine (11/27/2023 6:06 AM CDT) Albumin Ur 26.2 mg/L Comment: Interpretive Data No reference range established. Current interpretive data was last revised 2018. Creatinine Ur 85.8 mg/dL [facility] Comment: Interpretive Data No reference range established. Current interpretive data was last revised 2018. Albumin Creatinine Ratio, Ur 31(H) 1 - 29 mg/g [facility] Urine 11/27/2023 6:06 AM CDT 11/27/2023 7:53 AM CDT Alicia Palacio NP LAB URINE ORDERABLES Fi nal Result Performing Organization Address [facility] Co de Phone Number [address] [employer] [place] [address] from Last 3 Months or Most Recently Relevant to Health Maintenance Insurance Care Teams Public Address Technician Relationship Specialty Start Date End Date Alicia Palacio NP [address] [facility] [address] [place] [address] PCP - General Family Practice 12/12/19
--- OUTSIDE RECORDS SUMMARY | 2024-06-24 20:56 | XMS_ITS | Clinical Summary ---
Author Organization [facility] Address [address] [place] [address] Care Team Providers Care Fretted Instrument Maker Hand Name Role Phone Alicia Palacio Primary Care Provider +1- [phone] Allergies No known active allergies Medications atorvastatin [...] complication, without long-term current use of insulin ([facility]) 08/31/2014 Immunizations Immunization Administration Dates [...] 01/10, 07/11/2022, Additional history exists PHQ-2 (Physician Vicco) 03/12/2024 07/11/2022 DTaP, Tdap and Td Vaccines [...] home safety measures General 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 Procedure Name Priority Date/Time Associated Diagnosis Comments HEMOGLOBIN, GLYCOSYLATED Routine 09/05/2021 5:39 AM CDT LIPID PANEL Routine 09/04/2021 5:40 AM CDT from Last 3 Months or Most Recently Relevant to Health Maintenance Results * (ABNORMAL) HEMOGLOBIN, GLYCOSYLATED (09/05/2021 5:39 AM CDT) HGB A1C 14.6(H) <5.7 % 09/05/2021 8:55 AM CDT [facility] Comment: ADA GUIDELINES 2010 5.7 TO 6.4% INCREASED RISK OF DIABETES > OR = 6.5% CONSISTENT WITH DIABETES [place] [address] ESTIMATED AVG GLUCOSE 372 mg/dL 09/05/2021 8:55 AM CDT [facility] 09/05/2021 5:39 AM CDT Jagdeep Alcantar MD LABORATORY Final Result [facility] [address] [place] [address], * (ABNORMAL) LIPID PANEL (09/04/2021 5:40 AM CDT) CHOLESTEROL 218(H) <200 MG/DL 09/04/2021 7:12 AM CDT [facility] TRIGLYCERIDES 679(H) <150 MG/DL 09/04/2021 7:12 AM CDT [facility] HDL 42 >40.0 MG/DL 09/04/2021 7:12 AM [facility] LDL (CALCULATED) TRIGLYCERIDES >400 MG/DL, SEE DIRECT LDL REPORT <100 MG/DL 09/04/2021 7:12 AM T [facility] Comment:TRIGLYCERIDE >400 IN VALIDATES FRACTIONATION. NON HDL CHOLESTEROL 176(H) <130 MG/DL 09/04/2021 7:12 AM T [facility] Comment: NOTE: WHEN THE TRIGLYCERIDES ARE >200 mg/dL, NON HDL C IS A SECONDARY TARGET OF THERAPY, WITH A GOAL 30 mg/dL HIGHER THAN THE IDENTIFIED LDL C GOAL. CHOL/HDL RATIO 5.2(H) 0.0 - 4.5 09/04/2021 7:12 AM T [facility] VLDL CALCULATION UNABLE TO CALCULATE RESULT 5 - 55 MG/DL 09/04/2021 7:12 AM T [facility] Comment:TRIGLYCERIDE >400 IN VALIDATES FRACTIONATION. LIPID INTERPRETATION 09/04/2021 7:12 AM T [facility] Comment: NIH CONCENSUS REPORT RECOMMENDATIONS: ADULT CHILD LOW RISK: CHOLESTEROL <200 <170 TRIGLYCERIDE <150 --- HDL >=60 --- LDL <100 <110 BORDERLINE: CHOLESTEROL 200-239 170-199 TRIGLYCERIDE 150-199 --- HDL 40-59 --- LDL 100-159 110-129 HIGH RISK: CHOLESTEROL >=240 >=200 TRIGLYCERIDE >=200 --- HDL <40 --- LDL >=160 >=130 09/04/2021 5:40 AM CDT Jagdeep Alcantar MD LABORATORY Final Result [facility] [address] [place] [address], from Last 3 Months or Most Recently Relevant to Health Maintenance Insurance [facility] Advance Directives Documents on File Type Date 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
--- OUTSIDE RECORDS SUMMARY | 2024-06-24 20:56 | XMS_ITS | Encounter Summary ---
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
[2024-06-24 21:14] VITALS: BP 127/79; PULSE 86; RESP 18; TEMP 37; O2SAT 96
== END 2024-06-24 21:20 | disposition home or self-care (01) ==
LOC: CHSED 20:55
PROVIDERS: Emergency Provider Family Medicine
DX: M77.01 Medial epicondylitis, right elbow (principal); H00.016 Hordeolum externum left eye, unspecified eyelid
CPT/HCPCS: 96374; 99284; J1100; J2003

== ENCOUNTER 2024-07-01 15:43 | Emergency (ER) | payer BC, SELFPAY ==
--- NOTE | ~2024-07-01 | CT_ITS ---
History: Left upper extremity paresthesias PROCEDURE: CT head without contrast. COMPARISON: 02/13/2016 TECHNIQUE: Axial imaging of the head performed from the skull base to the vertex without IV contrast. Sagittal a nd coronal reformations obtained. DLP: 605 mGy-cm FINDINGS: The ventricles are normal in size, shape and position. There is no mass, mass effect or midline shift. There is no abnormal extra-axial fluid collection or intracranial hemorrhage. Visualized paranasal sinuses are clear. The mastoid air cells are well aerated. No acute displaced fractures within the overlying cranium. Impression: No acute intracranial hemorrhage or suspicious mass effect. Reviewed, dictated and finalized at location A. Impression: No acute intracranial hemorrhage or suspicious mass effect.
--- NOTE | 2024-07-01 15:52 | ED_ITS ---
HPI - General Adult General Chief complaint: Extremity Problem,Nontraumatic Stated complaint: left arm numbess Time Seen by Provider: 07/01/24 15:51 History of Present Illness HPI narrative: Jagdeep is a 54M with a PMH of a TIA, HLD, and DMII that presented to the ED with left elbow numbness. He presented to the ED with paresthesia of his left elbow for the last 11 hours. It was there when he woke up. He had something similar during a previous TIA. He denies any slurred speech, weakness, confusion, injury, CP or dyspnea. Related Data Home Medications ?Medication ?Instructions ?Recorded ?Confirmed ?Last Taken ?Type atorvastatin 10 mg tablet 10 mg PO DAILY 04/22/24 04/22/24 Unknown History glipizide 5 mg tablet 5 mg PO DAILY 04/22/24 04/22/24 Unknown History metformin 1,000 mg tablet 1,000 mg PO DAILY 04/22/24 04/22/24 Unknown History pregabalin 75 mg capsule 75 mg PO DAILY 04/22/24 04/22/24 Unknown History tirzepatide 2.5 mg/0.5 mL mg subcut 04/22/24 Unknown History subcutaneous pen injector (Mounjaro) Allergies Allergy/AdvReac Type Severity Reaction Status Date / Time No Known Allergies Allergy Verified 07/01/24 16:23 Review of Systems 2 Review of Systems: All systems reviewed & are unremarkable except as noted in HPI and below Exam 2 Const: General: cooperative, healthy appearing, comfortable, no acute distress, well developed, alert, awake and Physically active O rientation/consciousness: oriented to person, oriented to place and oriented to time HENMT: Head: normal to inspection, normocephalic and atraumatic Ears: h earing grossly normal bilaterally and external ears normal Face/Nose/Sinus: N ormal external nose present Eyes: General: appearance normal, both eyes and all related structures P eriorbital: periorbital findings normal Sclera: sclerae normal Pupils: E qual, round and reactive pupils present Neck: Neck: normal visual inspection Chest: Chest palpation & inspection: normal inspection of the chest Resp: Effort & Inspection: normal respiratory effort, able to speak in complete sentences and no respiratory distress Auscultation: clear to auscultation bilaterally Cardio: Jugular venous distension: no JVD Rate: regular rate Rhythm: r egular rhythm GI: Inspection: normal to inspection GI Palp: Yes Soft to palpation A uscultation: normal bowel sounds Skin: General skin exam: normal color and no rashes or lesions noted Neuro: General: oriented to person, oriented to place and oriented to time Cranial nerves: Yes Equal, round and reactive pupils present Speech: normal speech Gait exam (Neuro): Normal gait present Other: CNII-XII intact as tested. Strength in the upper extremities was 5/5 and symmetrical. He did still have sensation over his elbow. Extrem: General: normal to inspection Course Course Emergency Course: History: Left upper extremity paresthesias PROCEDURE: CT head without contrast. COMPARISON: 02/13/2016 TECHNIQUE: Axial imaging of the head performed from the skull base to the vertex without IV contrast. Sagittal and coronal reformations obtained. DLP: 605 mGy-cm FINDINGS: The ventricles are normal in size, shape and position. There is no mass, mass effect or midline shift. There is no abnormal extra-axial fluid collection or intracranial hemorrhage. Visualized paranasal sinuses are clear. The mastoid air cells are well aerated. No acute displaced fractures within the overlying cranium. Impression: No acute intracranial hemorrhage or suspicious mass effect. Differential is likely peripheral cause of neuropathy with CVA being less likely. I discussed return precautions with arie and instructed him to continue his aspirin and atorvastatin Vital Signs Vital signs: Vital Signs Oxygen Delivery Room Air 07/01/24 15:45 Temperature 98.1 F 07/01/24 16:29 Pulse Rate 89 07/01/24 16:29 Respiratory Rate 16 07/01/24 16:29 Blood Pressure 116/76 07/01/24 16:29 Pulse Oximetry 97 07/01/24 16:29 Oxygen Delivery Room Air 07/01/24 16:29 Medical Decision Making Vital Signs Vital Signs: Vital Signs Oxygen Delivery Room Air 07/01/24 15:45 Temperature 98.1 F 07/01/24 16:29 Pulse Rate 89 07/01/24 16:29 Respiratory Rate 16 07/01/24 16:29 Blood Pressure 116/76 07/01/24 16:29 Pulse Oximetry 97 07/01/24 16:29 Oxygen Delivery Room Air 07/01/24 16:29 Lab Data 07/01/24 16:10 07/01/24 16:09 Labs: Lab Results 07/01/24 07/01/24 Range/Units 16:09 16:10 WBC 7.6 (4.8-10.8) K/mm3 RBC 5.48 (4.70-6.10) M/mm3 Hgb 16.4 (14.0-18.0) g/dL Hct 48.9 (40.0-54.0) % MCV 89.2 (78.0-102.0) fL MCH 29.9 (27.0-31.0) pg MCHC 33.5 (32-36) g/dL RDW 12.5 (11.6-14.4) % Plt Count 253 (150-420) K/mm3 MPV 11.7 H (8.7-11.0) fl Immature Gran % (Auto) 0.1 H (0.0-0.0) % Neut % (Auto) 57.3 (50.0-70.0) % Lymph % (Auto) 32.9 (18.0-42.0) % [place]ill % (Auto) 8.2 (2.0-11.0) % Eos % (Auto) 0.7 L (1.0-6.0) % Baso % (Auto) 0.8 (0.0-1.0) % Lymph # (Auto) 2.49 (1.10-4.50) K/mm3 [place] # (Auto) 0.62 (0.10-0.90) K/mm3 Eos # (Auto) 0.05 (0.02-0.50) K/mm3 Baso # (Auto) 0.06 (0.00-0.10) K/mm3 Abs Immat Gran (auto) 0.01 H (0.00-0.00) K/mm3 Absolute Neuts (auto) 4.33 (1.70-7.20) K/mm3 Absolute Nucleated RBC 0.00 (0.00-0.00) K/mm3 Nucleated RBC % 0.0 (0-0.0) % PT Pending INR Pending Sodium Pending Potassium Pending Chloride Pending Carbon Dioxide Pending Anion Gap Pending BUN Pending Creatinine Pending Estim Creat Clear Calc Pending Estimated GFR Pending Glucose Pending Calculated Osmolality Pending Calcium Pending Total Bilirubin Pending AST Pending ALT Pending Alkaline Phosphatase Pending Troponin I Pending Total Protein Pending Albumin Pending Discharge Plan Discharge Clinical Impression: Paresthesia Patient Disposition: Home Condition: Stable Instructions: Paresthesia (ED) Patient Language: Syriac Prescriptions: No Action atorvastatin 10 mg tablet 10 mg PO DAILY metformin 1,000 mg tablet 1,000 mg PO DAILY glipizide 5 mg tablet 5 mg PO DAILY pregabalin 75 mg capsule 75 mg PO DAILY Mounjaro 2.5 mg/0.5 mL pen injector SUBCUT erythromycin 5 mg/gram (0.5 %) ointment 0.5 inch LEFT EYE QID Qty: 1 0RF doxycycline hyclate 100 mg tablet 100 mg PO BID Qty: 20 0RF polymyxin B sulf-trimethoprim 10,000 unit- 1 mg/mL drops 1 drp LEFT EYE Q3H 7 Days Qty: 10 0RF Rx Instructions: while awake; do not exceed 6 doses in 24 hours Follow-up/Referrals: Alicia Palacio, ARRT [Primary Care Provider] -
[2024-07-01 16:17] LABS: Basophils Absolute Auto 0.06 K/mm3 (0.00-0.10); Basophils Percent Auto 0.8 % (0.0-1.0); Eosinophils Absolute Auto 0.05 K/mm3 (0.02-0.50); Eosinophils Percent Auto 0.7 % (1.0-6.0); Hematocrit 48.9 % (40.0-54.0); Hemoglobin 16.4 g/dL (14.0-18.0); Immature Granulocyte Absolute 0.01 K/mm3 (0.00-0.00); Immature Granulocyte Percent A 0.1 % (0.0-0.0); Lymphocytes Absolute Auto 2.49 K/mm3 (1.10-4.50); Lymphocytes Percent Auto 32.9 % (18.0-42.0); Mean Corpuscular HGB Conc 33.5 g/dL (32-36); Mean Corpuscular Hemoglobin 29.9 pg (27.0-31.0); Mean Corpuscular Volume 89.2 fL (78.0-102.0); Mean Platelet Volume 11.7 fl (8.7-11.0); Monocytes Absolute Auto 0.62 K/mm3 (0.10-0.90); Monocytes Percent Auto 8.2 % (2.0-11.0); Neutrophils Absolute Auto 4.33 K/mm3 (1.70-7.20); Neutrophils Percent Auto 57.3 % (50.0-70.0); Platelet Count Result 253 K/mm3 (150-420); Red Blood Count 5.48 M/mm3 (4.70-6.10); Red Cell Distribution Width 12.5 % (11.6-14.4); White Blood Count 7.6 K/mm3 (4.8-10.8)
[2024-07-01 16:29] VITALS: BP 116/76; PULSE 89; RESP 16; TEMP 36.7; O2SAT 97
[2024-07-01 16:37] LABS: INR 0.9; Prothrombin Time 10.2 Seconds (9.50-12.1)
[2024-07-01 16:40] LABS: Alanine Aminotransferase 31 U/L (16-63); Albumin Level 4.1 g/dL (3.4-5.0); Alkaline Phosphatase 78 U/L (46-116); Anion Gap 12 mmol/L (4-12); Aspartate Amino Transferase 16 U/L (15-37); Bilirubin,Total 0.7 mg/dL (0.00-1.00); Blood Urea Nitrogen 26 mg/dL (7-18); Calcium 9.4 mg/dL (8.5-10.1); Carbon Dioxide 24 mmol/L (21-32); Chloride 99 mmol/L (98-108); Estimated CRCL calculation 54 ml/min; Estimated Glomerular Filt Rate 51; Glucose 283 mg/dL (70-99); Osmolality Calculated 294 mOsm/kg (285-295); Potassium 4.1 mmol/L (3.5-5.1); Sodium 135 mmol/L (136-145)
[2024-07-01 16:50] LABS: Troponin I < 4.0 ng/L (0.00-60.4)
--- NOTE | 2024-07-01 16:59 | PC.NURSE ---
PT IS SITTING ON STRETCHER TEXTING ON CELL WITHOUT DISTRESS. AT BEDSIDE. PT IS TO BE DC HOME. ERP AT BEDSIDE.
[2024-07-01 17:00] VITALS: BP 110/69; PULSE 86; RESP 18; TEMP 36.7; O2SAT 97
--- OUTSIDE RECORDS SUMMARY | 2024-07-01 17:47 | XMS_ITS | Clinical Summary ---
Author Organization [facility] Address [address] [place] [address] Care Team Providers Care Stick Feeder Name Role Phone Alicia Palacio Primary Care Provider +1- [phone] Allergies No known active allergies Medications atorvastatin [...] complication, without long-term current use of insulin ([facility]) 08/31/2014 Immunizations Immunization Administration Dates Next Due [...] 01/10, 07/11/2022, Additional history exists PHQ-2 (Physician [place]) 03/12/2024 07/11/2022 DTaP, Tdap and Td Vaccines [...] home safety measures General No 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 Procedure Name Priority Date/Time Associated Diagnosis Comments HEMOGLOBIN, GLYCOSYLATED Routine 09/05/2021 5:39 AM CDT LIPID PANEL Routine 09/04/2021 5:40 AM CDT from Last 3 Months or Most Recently Relevant to Health Maintenance Results * (ABNORMAL) HEMOGLOBIN, GLYCOSYLATED (09/05/2021 5:39 AM CDT) HGB A1C 14.6(H) <5.7 % 09/05/2021 8:55 AM CDT [facility] Comment: ADA GUIDELINES 2010 5.7 TO 6.4% INCREASED RISK OF DIABETES > OR = 6.5% CONSISTENT WITH [place]AB[place] [address] ESTIMATED AVG GLUCOSE 372 mg/dL 09/05/2021 8:55 AM CDT [facility] 09/05/2021 5:39 AM CDT Jagdeep Alcantar MD LABORATORY Final Result [facility] [address] [place] [address], * (ABNORMAL) LIPID PANEL (09/04/2021 5:40 AM CDT) CHOLESTEROL 218(H) <200 MG/DL 09/04/2021 7:12 AM CDT [facility] TRIGLYCERIDES 679(H) <150 MG/DL 09/04/2021 7:12 AM CDT [facility] HDL 42 >40.0 MG/DL 09/04/2021 7:[address] [facility] LDL (CALCULATED) TRIGLYCERIDES >400 MG/DL, SEE DIRECT LDL REPORT <100 MG/DL 09/04/2021 7:12 AM T [facility] Comment:TRIGLYCERIDE >400 IN VALIDATES FRACTIONATION. NON HDL CHOLESTEROL 176(H) <130 MG/DL 09/04/2021 7:12 AM T [facility] Comment: NOTE: WHEN THE TRIGLYCERIDES ARE >200 mg/dL, NON HDL C IS A SECONDARY TARGET OF THERAPY, WITH A GOAL 30 mg/dL HIGHER THAN THE IDENTIFIED LDL C GOAL. CHOL/HDL RATIO 5.2(H) 0.0 - 4.5 09/04/2021 7:12 AM T [facility] VLDL CALCULATION UNABLE TO CALCULATE RESULT 5 - 55 MG/DL 09/04/2021 7:12 AM T [facility] Comment:TRIGLYCERIDE >400 IN VALIDATES FRACTIONATION. LIPID INTERPRETATION 09/04/2021 7:12 AM T [facility] Comment: NIH CONCENSUS REPORT RECOMMENDATIONS: ADULT CHILD LOW RISK: CHOLESTEROL <200 <170 TRIGLYCERIDE <150 --- HDL >=60 --- LDL <100 <110 BORDERLINE: CHOLESTEROL 200-239 170-199 TRIGLYCERIDE 150-199 --- HDL 40-59 --- LDL 100-159 110-129 HIGH RISK: CHOLESTEROL >=240 >=200 TRIGLYCERIDE >=200 --- HDL <40 --- LDL >=160 >=130 09/04/2021 5:40 AM CDT Jagdeep Alcantar MD LABORATORY Final Result [facility] [address] [place] [address], from Last 3 Months or Most Recently Relevant to Health Maintenance Insurance [facility] Advance Directives Documents on File Type Date Recorded Patient Activities Director Expl anation Legal Documents 05/23/2016 SLEGAL * [...] 8:44 AM 01/18/2020 11:46 AM Care Teams Stick Feeder Relationship Specialty Start Date End Date Alicia Palacio APNP PCP - General NURSE PRACTITIONER 11/22/20
--- OUTSIDE RECORDS SUMMARY | 2024-07-01 17:47 | XMS_ITS | Clinical Summary ---
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 Continue [...] manner. Assessment & Plan (01/24/2019 9:20 AM CHEMISTRY TEACHER): Follow-up 1 year for annual physical. Continue [...] complication, without long-term current use of insulin (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 Department of Laboratories [place], [place] [id number] * PSA screen (11/27/2023 6:09 AM CDT) [...] CDT 11/27/2023 7:57 AM CDT Alicia Palacio SAP ARCHITECT LAB BLOOD ORDERABLES [facility] Result Performing Organization Address [facility] de Phone Number [address] [address] * (ABNORMAL) Hemoglobin A1c (11/27/2023 6:09 AM CDT) Hgb A1C 8.8(H) 4.0 - 5.6 % Estimated Average Glucose 206 mg/dL [facility] Comment: The ADA recommends reporting an estimated Average Glucose (eAG) with all Hemoglobin A1c results using the equation derived from a study of 507 normal and diabetic adults. Minority populations were underrepresented and children were not included. (Diabetes Care 31:5623-7293, 2008). The eAG is not equivalent to a fasting glucose. Blood 11/27/2023 6:09 AM CDT 11/27/2023 7:57 AM CDT Alicia Palacio NP LAB BLOOD ORDERABLES Fi nal Result Performing Organization Address [facility] Co de Phone Number [address] [address] * (ABNORMAL) Lipid panel (11/27/2023 6:09 AM [...] on 2023. Non-HDL Cholesterol 98 mg/dL [facility] Comment: Interpretive Data Ages < or [...] revised on 2017. Chol/HDL ratio 3 [facility] Blood 11/27/2023 6:09 AM CDT 11/27/2023 7:57 AM CDT Alicia Palacio LAB BLOOD ORDERABLES Fi nal Result Performing Organization Address [facility] Co de Phone Number [address] [place] [address] * (ABNORMAL) Albumin Creatinine Ratio, Urine (11/27/2023 6:06 AM CDT) Albumin Ur 26.2 mg/L Comment: Interpretive Data No reference range established. Current interpretive data was last revised 2018. Creatinine Ur 85.8 mg/dL [facility] Comment: Interpretive Data No reference range established. Current interpretive data was last revised 2018. Albumin Creatinine Ratio, Ur 31(H) 1 - 29 mg/g [facility] Urine 11/27/2023 6:06 AM CDT 11/27/2023 7:53 AM CDT Alicia Palacio NP LAB URINE ORDERABLES Fi nal Result Performing Organization Address [facility] Co de Phone Number [address] [place] [address] from Last 3 Months or Most Recently Relevant to Health Maintenance Insurance Care Teams Clinical Pharmacy Specialist Relationship Specialty Start Date End Date Alicia Palacio NP [address] [facility] [address] [place] [address] PCP - General Family Practice 12/12/19
--- OUTSIDE RECORDS SUMMARY | 2024-07-01 17:47 | XMS_ITS | Encounter Summary ---
Author Organization [facility] Address [address] [place] [address] Care Team Providers Care Business Machine Mechanic Name Role Phone Ed Blevins DO Primary Care Provider +1- [phone] Alicia Palacio Primary Care Provider +1- [phone] Encounter Details Date Type Department Care Team (Latest Contact Info) Description 01/15/2018 Abstract [facility] Krystin Cartwright MD [...] Rule Out 01/18/2020 01/18/2020 01/19/2020 10:56 PM GIZZARD PEELER documented as of this encounter Care Teams Business Machine Mechanic Relationship Specialty Start Date End Date Ed Blevins DO PCP - General 03/20/16 01/17/20 Alicia Palacio APNP PCP - General NURSE PRACTITIONER 11/22/20 documented as of this encounter
--- OUTSIDE RECORDS SUMMARY | 2024-07-01 17:47 | XMS_ITS | Referral Summary ---
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 Continue [...] manner. Assessment & Plan (01/24/2019 9:20 AM BASEBALL UMPIRE FOR LITTLE LEAGUE): Follow-up 1 year for annual physical. 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 FOR [employer] Gender Identity Not on file Sexual Orientation [...] NP LAB BLOOD ORDERABLES Fi nal Result [facility] [address] [facility] [place] [address] * PSA screen (11/27/2023 6:09 [...] BLOOD ORDERABLES nal Result Performing Organization Address [facility] Phone Number [address] [address] * (ABNORMAL) Hemoglobin A1c (11/27/2023 6:09 AM CDT) Hgb A1C 8.8(H) 4.0 - 5.6 % Estimated Average Glucose 206 mg/dL [facility] Comment: The ADA recommends reporting an estimated Average Glucose (eAG) with all Hemoglobin A1c results using the equation derived from a study of 507 normal and diabetic adults. Minority populations were underrepresented and children were not included. (Diabetes Care 31:3609-2793, 2008). The eAG is not equivalent to a fasting glucose. Blood 11/27/2023 6:09 AM CDT 11/27/2023 7:57 AM CDT Alicia Palacio LAB BLOOD ORDERABLES [facility] Result Performing Organization Address [facility] de Phone Number [address] [address] * (ABNORMAL) Lipid panel (11/27/2023 6:09 AM [...] last revised on 2017. Chol/HDL ratio 3 [facility] Blood 11/27/2023 6:09 AM CDT 11/27/2023 7:57 AM CDT Alicia Palacio NP LAB BLOOD ORDERABLES Fi nal Result Performing Organization Address [facility] Co de Phone Number [address] [place] [address] * (ABNORMAL) Albumin Creatinine Ratio, Urine (11/27/2023 6:06 AM CDT) Albumin Ur 26.2 mg/L Comment: Interpretive Data No reference range established. Current interpretive data was last revised 2018. Creatinine Ur 85.8 mg/dL [facility] Comment: Interpretive Data No reference range established. Current interpretive data was last revised 2018. Albumin Creatinine Ratio, Ur 31(H) 1 - 29 mg/g [facility] Urine 11/27/2023 6:06 AM CDT 11/27/2023 7:53 AM CDT Alicia Palacio NP LAB URINE ORDERABLES Fi nal Result Performing Organization Address [facility] Co de Phone Number [address] [place] [address] from Last 3 Months or Most Recently Relevant to Health Maintenance Insurance [facility] [employer] Care Teams Tank Cleaner Relationship Specialty Start Date End Date Alicia Palacio NP [address] [facility] [address] [place] [address] PCP - General Family Practice 12/12/19
--- OUTSIDE RECORDS SUMMARY | 2024-07-01 18:15 | XMS_ITS | Clinical Summary ---
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 Continue [...] manner. Assessment & Plan (01/24/2019 9:20 AM HOUSEKEEPING LEAD): Follow-up 1 year for annual physical. Continue [...] complication, without long-term current use of insulin ([facility]) 08/31/2014 Immunizations Immunization Administration Dates [...] on file Legal Sex Male 6:41 PM HOUSEKEEPING LEAD Gender Identity Not on file Sexual Orientation [...] CDT Alicia Palacio NP LAB BLOOD ORDERABLES [facility] Result [facility] [address] [facility] Department of Laboratories [place], [place] [id number] * PSA screen (11/27/2023 6:09 AM CDT) [...] CDT 11/27/2023 7:57 AM CDT Alicia Palacio STOVE MOUNTER LAB BLOOD ORDERABLES [facility] Result Performing Organization Address [facility] de Phone Number [address] [address] * (ABNORMAL) Hemoglobin A1c (11/27/2023 6:09 AM CDT) Hgb A1C 8.8(H) 4.0 - 5.6 % Estimated Average Glucose 206 mg/dL [facility] Comment: The ADA recommends reporting an estimated Average Glucose (eAG) with all Hemoglobin A1c results using the equation derived from a study of 507 normal and diabetic adults. Minority populations were underrepresented and children were not included. (Diabetes Care 31:7796-3774, 2008). The eAG is not equivalent to a fasting glucose. Blood 11/27/2023 6:09 AM CDT 11/27/2023 7:57 AM CDT Alicia Palacio NP LAB BLOOD ORDERABLES Fi nal Result Performing Organization Address [facility] Co de Phone Number [address] [address] * (ABNORMAL) Lipid panel (11/27/2023 6:09 AM [...] revised on 2023. Non-HDL Cholesterol 98 mg/dL [facility] Comment: Interpretive Data Ages < or [...] last revised on 2017. Chol/HDL ratio 3 [facility] Blood 11/27/2023 6:09 AM CDT 11/27/2023 7:57 AM CDT Alicia Palacio LAB BLOOD ORDERABLES Fi nal Result Performing Organization Address [facility] Co de Phone Number [address] [facility] [place] [address] * (ABNORMAL) Albumin Creatinine Ratio, Urine (11/27/2023 6:06 AM CDT) Albumin Ur 26.2 mg/L Comment: Interpretive Data No reference range established. Current interpretive data was last revised 2018. Creatinine Ur 85.8 mg/dL [facility] Comment: Interpretive Data No reference range established. Current interpretive data was last revised 2018. Albumin Creatinine Ratio, Ur 31(H) 1 - 29 mg/g [facility] Urine 11/27/2023 6:06 AM CDT 11/27/2023 7:53 AM CDT Alicia Palacio NP LAB URINE ORDERABLES Fi nal Result Performing Organization Address [facility] Co de Phone Number [address] [facility] [place] [address] from Last 3 Months or Most Recently Relevant to Health Maintenance Insurance [facility] Address: [address] [place] [address] [facility] [facility]/PPO Address: [place] [address] [facility] [facility] H[employer]/PPO Address: [address] [place], [place] [id number] Care Teams Dental Laboratory Worker Relationship Specialty Start Date End Date Alicia Palacio NP [address] [facility] [address] [place] [address] PCP - General Family Practice 12/12/19
--- OUTSIDE RECORDS SUMMARY | 2024-07-01 18:15 | XMS_ITS | Clinical Summary ---
Author Organization [facility] Address [address] [place] [address] Care Team Providers Care Typesetter Apprentice Name Role Phone Alicia Palacio Primary Care Provider [phone]- [phone] Allergies No known active allergies Medications atorvastatin [...] complication, without long-term current use of insulin ([facility]) 08/31/2014 Immunizations Immunization Administration Dates [...] 01/10, 07/11/2022, Additional history exists PHQ-2 (Physician [place]) 03/12/2024 07/11/2022 DTaP, Tdap and Td Vaccines [...] home safety measures General 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 Comment: ADA GUIDELINES 2010 5.7 TO 6.4% INCREASED RISK OF DIABETES > OR = 6.5% CONSISTENT WITH DIABETES [place] [address] ESTIMATED AVG GLUCOSE 372 mg/dL 09/05/2021 8:[address] [facility] 09/05/2021 5:39 AM CDT Jagdeep Alcantar MD LABORATORY Final Result [facility] [address] [place] [address], * (ABNORMAL) LIPID PANEL (09/04/2021 5:40 AM CDT) CHOLESTEROL 218(H) <200 MG/DL 09/04/2021 7:12 AM CDT [facility] TRIGLYCERIDES 679(H) <150 MG/DL 09/04/2021 7:12 AM CDT [facility] HDL 42 >40.0 MG/DL 09/04/2021 7:12 AM [facility] LDL (CALCULATED) TRIGLYCERIDES >400 MG/DL, SEE DIRECT LDL REPORT <100 MG/DL 09/04/2021 7:12 AM T [facility] Comment:TRIGLYCERIDE >400 IN VALIDATES FRACTIONATION. NON HDL CHOLESTEROL 176(H) <130 MG/DL 09/04/2021 7:12 AM T [facility] Comment: NOTE: WHEN THE TRIGLYCERIDES ARE >200 mg/dL, NON HDL C IS A SECONDARY TARGET OF THERAPY, WITH A GOAL 30 mg/dL HIGHER THAN THE IDENTIFIED LDL C GOAL. CHOL/HDL RATIO 5.2(H) 0.0 - 4.5 09/04/2021 7:12 AM T [facility] VLDL CALCULATION UNABLE TO CALCULATE RESULT 5 - 55 MG/DL 09/04/2021 7:12 AM T [facility] Comment:TRIGLYCERIDE >400 IN VALIDATES FRACTIONATION. LIPID INTERPRETATION 09/04/2021 7:12 AM T [facility] Comment: NIH CONCENSUS REPORT RECOMMENDATIONS: ADULT CHILD LOW RISK: CHOLESTEROL <200 <170 TRIGLYCERIDE <150 --- HDL >=60 --- LDL <100 <110 BORDERLINE: CHOLESTEROL 200-239 170-199 TRIGLYCERIDE 150-199 --- HDL 40-59 --- LDL 100-159 110-129 HIGH RISK: CHOLESTEROL >=240 >=200 TRIGLYCERIDE >=200 --- HDL <40 --- LDL >=160 >=130 09/04/2021 5:40 AM CDT Jagdeep Alcantar MD LABORATORY Final Result [facility] [address] [place] [address], from Last 3 Months or Most Recently Relevant to Health Maintenance Insurance [facility] Advance Directives Documents on File Type Date Recorded Patient Acute Care Nurse Expl anation Legal Documents 05/23/2016 SLEGAL * [...] 8:44 AM 01/18/2020 11:46 AM Care Teams Typesetter Apprentice Relationship Specialty Start Date End Date Alicia Palacio APNP PCP - General NURSE PRACTITIONER 11/22/20
--- OUTSIDE RECORDS SUMMARY | 2024-07-01 18:15 | XMS_ITS | Referral Summary ---
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 Continue [...] manner. Assessment & Plan (01/24/2019 9:20 AM GLASS PRODUCTS INSPECTOR): Follow-up 1 year for annual physical. 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 Gender Identity Not on file Sexual Orientation [...] NP LAB BLOOD ORDERABLES Fi nal Result [facility] [address] [facility] Department [place] [address] * PSA screen (11/27/2023 6:09 [...] BLOOD ORDERABLES nal Result Performing Organization Address [facility] Phone Number [address] [address] * (ABNORMAL) Hemoglobin A1c (11/27/2023 6:09 AM CDT) Hgb A1C 8.8(H) 4.0 - 5.6 % Estimated Average Glucose 206 mg/dL [facility] Comment: The ADA recommends reporting an estimated Average Glucose (eAG) with all Hemoglobin A1c results using the equation derived from a study of 507 normal and diabetic adults. Minority populations were underrepresented and children were not included. (Diabetes Care 31:6625-9460, 2008). The eAG is not equivalent to a fasting glucose. Blood 11/27/2023 6:09 AM CDT 11/27/2023 7:57 AM CDT Alicia Palacio LAB BLOOD ORDERABLES [facility]ly [facility] Result Performing Organization Address [facility] de Phone Number [address] [address] * (ABNORMAL) Lipid panel (11/27/2023 6:09 AM [...] last revised on 2017. Chol/HDL ratio 3 [facility] Blood 11/27/2023 6:09 AM CDT 11/27/2023 7:57 AM CDT Alicia Palacio NP LAB BLOOD ORDERABLES Fi nal Result Performing Organization Address [facility] Co de Phone Number [address] [place] [address] * (ABNORMAL) Albumin Creatinine Ratio, Urine (11/27/2023 6:06 AM CDT) Albumin Ur 26.2 mg/L Comment: Interpretive Data No reference range established. Current interpretive data was last revised 2018. Creatinine Ur 85.8 mg/dL [facility] Comment: Interpretive Data No reference range established. Current interpretive data was last revised 2018. Albumin Creatinine Ratio, Ur 31(H) 1 - 29 mg/g [facility] Urine 11/27/2023 6:06 AM CDT 11/27/2023 7:53 AM CDT Alicia Palacio NP LAB URINE ORDERABLES Fi nal Result Performing Organization Address [facility] Co de Phone Number [address] [place] [address] from Last 3 Months or Most Recently Relevant to Health Maintenance Insurance [facility] Care Teams Landscape And Yardwork Laborer Relationship Specialty Start Date End Date Alicia Palacio NP [address] [facility] [address] [place] [address] PCP - General Family Practice 12/12/19
--- OUTSIDE RECORDS SUMMARY | 2024-07-01 18:15 | XMS_ITS | Encounter Summary ---
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
== END 2024-07-01 17:00 | disposition home or self-care (01) ==
PROVIDERS: Emergency Provider Family Medicine
DX: R20.2 Paresthesia of skin (principal); E78.5 Hyperlipidemia, unspecified; E11.9 Type 2 diabetes mellitus without complications; Z86.73 Personal history of transient ischemic attack (TIA), and cerebral infarction without residual deficits
CPT/HCPCS: 36415; 70450; 80053; 84484; 85025; 85610; 99284

== ENCOUNTER 2024-08-20 08:35 | Emergency (ER) | payer BC, SELFPAY ==
[2024-08-20 08:48] VITALS: BP 117/75; PULSE 81; RESP 20; TEMP 37.2; O2SAT 98
--- NOTE | 2024-08-20 08:54 | ED.NAVMDI ---
HPI - Nausea/Vomiting/Diarrhea General Chief complaint: Nausea/Vomiting/Diarrhea Stated complaint: Vomiting Time Seen by Provider: 08/20/24 08:54 Source: patient Mode of arrival: ambulatory Limitations: no limitations History of Present Illness HPI Narrative: 54-year-old male with a history of dyslipidemia, diabetes mellitus, hypertension presents to the ED with -- multiple episodes of vomiting 2 days ago. currently no vomiting, abdominal pain or diarrhea. -- Fever for the past 1 day. The patient did not actually measure his temperature. -- Body ache -- the patient quit taking his diabetic medications including Lantus, Mounjaro, glipizide, metformin . the patient was unable to make an appointment with his primary care physician. MD elicited complaint: vomiting Associated nausea: No Associated abdominal pain: No Location of pain: none Exacerbating factors: none Relieving factors: none Associated symptoms: myalgias and fever/chills Related Data Home Medications ?Medication ?Instructions ?Recorded ?Confirmed ?Last Taken ?Type atorvastatin 10 mg tablet 10 mg PO DAILY 04/22/24 08/20/24 Unknown History glipizide 5 mg tablet 5 mg PO DAILY 04/22/24 08/20/24 Unknown History metformin 1,000 mg tablet 1,000 mg PO DAILY 04/22/24 08/20/24 Unknown History pregabalin 75 mg capsule 75 mg PO DAILY 04/22/24 08/20/24 Unknown History tirzepatide 2.5 mg/0.5 mL mg subcut 04/22/24 Unknown History subcutaneous pen injector (Mounjaro) Allergies Allergy/AdvReac Type Severity Reaction Status Date / Time No Known Allergies Allergy Verified 08/20/24 08:55 Review of Systems Review of Systems: All systems reviewed & are unremarkable except as noted in HPI and below Constitutional: Constitutional: Reports as per HPI, Reports no additional constitutional complaints and Reports fever(s) Eyes: Eyes: Reports as per HPI and Reports no additional eye complaints ENT: Reports system reviewed and no additional complaints, except as documented and Reports as per HPI Cardiovascular: Cardiovascular: Reports as per HPI and Reports no additional cardiovascular complaints Respiratory: Respiratory: Reports as per HPI and Reports no additional respiratory complaints Gastrointestinal: Gastrointestinal: Reports as per HPI and Reports no additional gastrointestinal complaints Comments: Vomiting 2 days ago. Genitourinary: Genitourinary: Reports no additional male genitourinary complaints and Reports as per HPI Musculoskeletal: Musculoskeletal: Reports no additional musculoskeletal complaints, Reports as per HPI and Reports myalgias Integumentary/Breasts: Skin/Breast: Reports system reviewed and no additional complaints, except as docu and Reports as per HPI Neurologic: Reports system reviewed and no additional complaints, except as documented and Reports as per HPI Psychiatric: Psychiatric: Reports no additional psychiatric complaints and Reports as per HPI Endocrine: Endocrine: Reports no additional endocrine complaints and Reports as per HPI Hematologic/Lymphatic: Hematologic/Lymphatic: Reports no additional hematologic/lymphatic complaints and Reports as per HPI Allergic/Immunologic: Allergic/Immunologic: Reports no additional allergic/immunologic complaints and Reports as per HPI [facility] Past Medical History Medical History (Updated 08/20/24 @ 10:05 by Daren Lockwood MD) Diabetes mellitus Exam Narrative: afebrile. Blood pressure is stable. Const: General: no acute distress Orientation/consciousness: patient oriented x3 Limitations: no limitations HENMT: Head: normal to inspection Ears: external ears normal Face/Nose/Sinus: Normal external nose present Face and sinus: normal facial exam Mouth: Yes Normal oral and palatal mucosa present Throat: posterior oropharynx normal Eyes: Conjunctivae: conjunctivae normal Cornea: corneas normal Pupils: Equal, round and reactive pupils present EOM: EOMs intact bilaterally Direct Ophthalmoscopy: no photophobia Neck: Neck: normal visual inspection, no lymphadenopathy and no meningeal signs Chest: Chest palpation & inspection: normal inspection of the chest Resp: Effort & Inspection: normal respiratory effort Auscultation: clear to auscultation bilaterally Cardio: Rate: regular rate Rhythm: regular rhythm GI: GI Palp: Yes Soft to palpation Auscultation: normal bowel sounds Other: No tenderness/rigidity / rebound. : General: Yes bladder normal to palpation and Yes no CVA tenderness Back/Spine/Pelvis: Back: no CVA tenderness Skin: General skin exam: normal color Rashes: no rashes Wounds: no wounds Neuro: General: patient oriented x3, moves all extremities, no meningeal signs, no focal motor deficits and CN's II-XI intact bilaterally Cranial nerves: Yes Nystagmus not present Speech: normal speech Extrem: General: normal to inspection and no clubbing, cyanosis or edema Psych: Mental Status: mental status grossly normal Affect: normal affect Attitude: cooperative Course Course Emergency Course: Fever/ Body ache-- patient is afebrile. He tested negative for RSV /influenza / COVID. Blood work is unremarkable. will refill Jardiance 25, Lantus 25, metformin 1000 twice a day. patient is due to see a primary care physician. Patient is due to see his primary care physician. Vital Signs Vital signs: Vital Signs Temperature 37.2 C 08/20/24 08:48 Pulse Rate 81 08/20/24 08:48 Respiratory Rate 20 08/20/24 08:48 Blood Pressure 117/75 08/20/24 08:48 Pulse Oximetry 98 08/20/24 08:48 Oxygen Delivery Room Air 08/20/24 08:48 Temperature 37.2 C 08/20/24 08:48 Pulse Rate 81 08/20/24 08:48 Respiratory Rate 20 08/20/24 08:48 Blood Pressure 117/75 08/20/24 08:48 Pulse Oximetry 98 08/20/24 08:48 Oxygen Delivery Room Air 08/20/24 08:48 MDM - Nausea/Vomiting/Diarrhea MDM Narrative Medical decision making narrative: Hyperglycemia with diabetes mellitus febrile illness Differential Diagnosis Differential diagnosis: Likely other ( viral infection) Medical Records Attestation: I reviewed the patient's medical records. Lab Data Attestation: I reviewed the patient's lab results. 08/20/24 09:16 08/20/24 09:16 Labs: Lab Results 08/20/24 Range/Units 09:16 WBC 8.1 (4.8-10.8) K/mm3 RBC 5.09 (4.70-6.10) M/mm3 Hgb 15.5 (14.0-18.0) g/dL Hct 45.7 (40.0-54.0) % MCV 89.8 (78.0-102.0) fL MCH 30.5 (27.0-31.0) pg MCHC 33.9 (32-36) g/dL RDW 13.2 (11.6-14.4) % Plt Count 248 (150-420) K/mm3 MPV 10.5 (8.7-11.0) fl Immature Gran % (Auto) Not Reportable Neut % (Auto) Not Reportable Lymph % (Auto) Not Reportable [place] % (Auto) Not Reportable Eos % (Auto) Not Reportable Baso % (Auto) Not Reportable Lymph # (Auto) Not Reportable [place] # (Auto) Not Reportable Eos # (Auto) Not Reportable Baso # (Auto) Not Reportable Abs Immat Gran (auto) Not Reportable Absolute Neuts (auto) Not Reportable Absolute Nucleated RBC Not Reportable Total Counted 100 Neutrophils % (Manual) 69 (46-73) % Band Neutrophils % 0 (0-6) % Lymphocytes % (Manual) 16 L (18-44) % Monocytes % (Manual) 15 H (3-9) % Nucleated RBC % Not Reportable Abs Neuts (Manual) 5.58 (1.3-6.7) K/mm3 Abs Lymphs (Manual) 1.29 (1.1-4.5) K/mm3 Abs Monocytes (Manual) 1.21 H (0.1-0.90) K/mm3 Platelet Estimate Adequate (Adequate) Schistocytes None seen Sodium 134 L (137-145) mmol/L Potassium 4.5 (3.4-5.0) mmol/L Chloride 99 (98-107) mmol/L Carbon Dioxide 26 (22-30) mmol/L Anion Gap 9 (4-12) mmol/L BUN 14 (9-20) mg/dL Creatinine 0.74 (0.7-1.3) mg/dL Estim Creat Clear Calc 103 ml/min Estimated GFR > 60 (59 - ) Glucose 221 H (65-110) mg/dL Calculated Osmolality 285 (285-295) mOsm/kg Lactic Acid 1.0 (0.4-2.0) mmol/L Calcium 8.4 (8.4-10.2) mg/dL Total Bilirubin 1.2 (0.2-1.3) mg/dL AST 35 (17-59) U/L ALT 34 (6-50) U/L Alkaline Phosphatase 54 (38-126) U/L Troponin I Pending Total Protein 7.2 (6.3-8.2) g/dL Albumin 4.7 (3.5-5.1) g/dL Lipase 114 (23-300) U/L TSH Pending Urine Color Light yellow (Yellow) Urine Appearance Clear (Clear) Urine pH 6.0 (5.0-8.0) Ur Specific [place] 1.010 (1.010-1.020) Urine Protein Negative (Negative) Urine Glucose (UA) 3+ H (Negative) Urine Ketones 3+ H (Negative) Ur Blood (Man) Negative (Negative) Urine Nitrate Negative (Negative) Urine Bilirubin Negative (Negative) Urine Urobilinogen 1.0 (0.2-1.0) mg/dL Leukocyte Esterase Rfl Negative (Negative) BETHANIE/UL Influenza A (RT-PCR) Negative (Negative) Influenza B (RT-PCR) Negative (Negative) RSV (RT-PCR) Negative (Negative) SARS-CoV-2 RNA (RT-PCR) Negative (Negative) Discharge Plan Discharge Clinical Impression: Hyperglycemia due to type 2 diabetes mellitus, Febrile illness Patient Disposition: Home Condition: Stable Instructions: Antibiotic Form, Fever in Adults (ED), Diabetic Hyperglycemia (ED) Patient Language: Kyrgyz Prescriptions: New Jardiance 25 mg tablet 25 mg PO DAILY Qty: 30 0RF metformin 1,000 mg tablet 1,000 mg PO BID Qty: 60 0RF insulin glargine [Lantus Solostar U-100 Insulin] 100 unit/mL (3 mL) insulin pen 25 unit subcut QPM Qty: 15 0RF No Action atorvastatin 10 mg tablet 10 mg PO DAILY metformin 1,000 mg tablet 1,000 mg PO DAILY glipizide 5 mg tablet 5 mg PO DAILY pregabalin 75 mg capsule 75 mg PO DAILY Mounjaro 2.5 mg/0.5 mL pen injector SUBCUT erythromycin 5 mg/gram (0.5 %) ointment 0.5 inch LEFT EYE QID Qty: 1 0RF polymyxin B sulf-trimethoprim 10,000 unit- 1 mg/mL drops 1 drp LEFT EYE Q3H 7 Days Qty: 10 0RF Rx Instructions: while awake; do not exceed 6 doses in 24 hours Follow-up/Referrals: UNKNOWN,DOCTOR [Non-Staff] - Time of Disposition: 10:08
--- OUTSIDE RECORDS SUMMARY | 2024-08-20 08:56 | XMS_ITS | Clinical Summary ---
Author Organization [facility] [address] Address [address] [place] [address] Care Team Providers Care Lounge Car Attendant Name Role Phone Alicia Palacio NP Primary Care Provider Allergies No known active allergies Medications blood glucose diagnostic strip 2 (two) times a day 05/09/19 18 Active omega 2-rhl-ihr-fish oil 100-160-1,000 mg capsule 1,000 mg 2 (two) times a day Active diazePAM (VALIUM) 5 mg tabletIndications :Radiculopathy of cervical region Take 1 tablet (5 mg total) by mouth daily as needed for anxiety 4 tablet 01/27/20 23 Active Additional Information Patient not taking.Reported on 02/16/2023 cyclobenzaprine (FLEXERIL) 10 mg tablet Take 1 tablet (10 mg total) by mouth 3 (three) times a day as needed 04/05/19 24 Active clopidogreL (PLAVIX) 75 mg tablet Take 1 tablet (75 mg total) by mouth daily 90 tablet 3 04/12/19 24 Active aspirin 325 mg tablet Take 1 tablet (325 mg total) by mouth daily Active insulin glargine (LANTUS) 100 unit/mL (3 mL) pen for injectionIndicati ons:Type 2 diabetes mellitus without complication, without long-term current use of insulin (HCC) Inject 25 Units under the skin daily 15 mL 6 06/18/19 24 Active pen needle, diabetic 31 gauge x 5/16 needleIndications :Type 2 diabetes mellitus without complication, without long-term current use of insulin (HCC) USE ONCE DAILY DIRECTED 100 each 6 09/29/19 24 Active Mounjaro 2.5 mg/0.5 mL pen injector injectionIndicati ons:Type 2 diabetes mellitus with hyperglycemia, without long-term current use of insulin ([facility]) INJECT 2.5 MG SUBCUTANEOUSLY ONCE A WEEK 4 mL 05/03/19 25 Active empagliflozin (Jardiance) 25 mg tablet Take 1 tablet (25 mg total) by mouth daily 90 tablet 1 05/20/19 25 Active metFORMIN (GLUCOPHAGE) 1,000 mg tabletIndications :Type 2 diabetes mellitus without complication, without long-term current use of insulin ([facility]) TAKE 1 TABLET BY MOUTH TWICE DAILY WITH MEALS 60 tablet 07/11/19 25 Active pregabalin (LYRICA) 75 mg capsule Take 1 capsule by mouth twice daily 60 capsule 07/12/19 25 Active atorvastatin (LIPITOR) 10 mg tabletIndications :Mixed hyperlipidemia Take 1 tablet (10 mg total) by mouth daily 30 tablet 08/13/19 25 Active gemfibroziL (LOPID) 600 mg tabletIndications :Mixed hyperlipidemia Take 1 tablet (600 mg total) by mouth 2 (two) times a day 60 tablet 08/13/19 25 Active glipiZIDE (GLUCOTROL) 5 mg tabletIndications :Type 2 diabetes mellitus without complication, without long-term current use of insulin ([facility]) Take 2 tablets by mouth twice daily before breakfast and lunch. 120 tablet 1 08/13/19 25 Active lisinopriL (PRINIVIL,ZESTRIL ) 10 mg tabletIndications :Essential hypertension Take 1 tablet (10 mg total) by mouth daily 30 tablet 08/13/19 25 Active glipiZIDE (GLUCOTROL) 5 mg tabletIndications :Type 2 diabetes mellitus without complication, without long-term current use of insulin ([facility]) TAKE 2 TABLETS BY MOUTH TWICE DAILY BEFORE BREAKFAST AND LUNCH 120 tablet 1 05/20/19 25 025 Disconti nued(Reo rder) lisinopriL (PRINIVIL,ZESTRIL ) 10 mg tabletIndications :Essential hypertension Take 1 tablet by mouth once daily 30 tablet 07/11/19 25 025 Disconti nued(Reo rder) atorvastatin (LIPITOR) 10 mg tabletIndications :Mixed hyperlipidemia Take 1 tablet by mouth once daily 30 tablet 07/11/19 25 025 Disconti nued(Reo rder) gemfibroziL (LOPID) 600 mg tabletIndications :Mixed hyperlipidemia Take 1 tablet by mouth twice daily 60 tablet 07/11/19 25 025 Disconti nued(Reo rder) Active Problems Problem Noted Date Diagnosed Date History of TIA (transient ischemic attack) 06/04 Overview (06/05/2023): Risk factor modification Sensorineural hearing loss (SNHL) of both ears 1 04/19/2022 Noise-induced hearing loss of both ears 02/17/20 23 Type 2 diabetes mellitus with hyperglycemia 12/11 Axillary abscess 09/03/2021 COVID-19 01/18/2020 Annual physical exam 01/24/2019 Assessment & Plan (02/19/2023 3:45 PM LEI MAKER): Follow-up 1 year for annual physical. Continue [...] manner. Assessment & Plan (01/24/2019 9:20 AM LEI MAKER): Follow-up 1 year for annual physical. Continue [...] complication, without long-term current use of insulin (CMS/HCC) 08/31/2014 Encounters Date Type Department Care Team Description 08/18/2024 6:30 AM CDT Lab [facility] [address] [place] [address] Type 2 diabetes mellitus with hyperglycemia, without long-term current use of insulin (HCC); Mixed hyperlipidemia 07/29/2024 Telephone [facility] Neurosurgery [address] [facility] Floor 1, [address] [place] [address] Lilli Evans NP from Last 3 Months Immunizations Immunization Administration Dates Next Due Influenza, [...] Used Date Smoking Tobacco: Former Cigarettes 1 - 2011 Smokeless Tobacco: Never Tobacco Cessation:Counseling [...] on file Legal Sex Male 6:41 PM LEI MAKER Gender Identity Not on file Sexual Orientation [...] 3:18 PM CDT Height 177.8 cm (5' 10) 11/29/2023 3:18 PM CDT Body Mass Index [...] Regular Well Visit/Exam 18-64 01/27/2024, 01/06/2022, 01/24/2019 Influenza Vaccine (Season Ended) 2024 Albumin Creatinine Ratio, Urine 11/26/2024 11/27/2023, 01/22/2023, 01/02/2022 Depression Screening 11/28/2024 11/29/2023, 08/16/2022, 09/13/2021, Additional history exists Hemoglobin A1C 02/17/2025 08/18/2024, 11/10, 05/21/2023, Additional history exists Lipid Panel 08/18/2025 08/18/2024, 11/10, 01/22/2023, Additional history exists eGFR 08/18/2025 08/18/2024, 11/10, 05/21/2023, Additional history exists Prostate Cancer Screening-PSA 11/26/2025, 01/22/2023, 01/02/2022, Additional history exists DTaP/Tdap/Td Vaccine (2 - Td or Tdap) 06/05/2033 06/06/2023 Procedures Procedure Name Priority Date/Time Associated Diagnosis Comments EGFR Routine 08/18/2024 6:35 AM CDT Type 2 diabetes mellitus with hyperglycemia, without long-term current use of insulin (HCC) HEMOGLOBIN A1C Routine 08/18/2024 6:35 AM CDT Type 2 diabetes mellitus with hyperglycemia, without long-term current use of insulin (HCC) COMPREHENSIVE METABOLIC PANEL Routine 08/18/2024 6:35 AM CDT Type 2 diabetes mellitus with hyperglycemia, without long-term current use of insulin (HCC) LIPID PANEL Routine 08/18/2024 6:35 AM CDT Mixed hyperlipidemia THYROID FUNCTION CASCADE Routine 08/18/2024 6:35 AM CDT Type 2 diabetes mellitus with hyperglycemia, without long-term current use of insulin (HCC) Mixed hyperlipidemia PSA SCREEN Routine 11/27/2023 6:09 AM CDT Prostate cancer screening ALBUMIN CREATININE RATIO, URINE Routine 11/27/2023 6:06 AM CDT Type 2 diabetes mellitus with hyperglycemia, without long-term current use of insulin (HCC) from Last 3 Months or Most Recently Relevant to Health Maintenance Results * eGFR (08/18/2024 6:35 AM CDT) eGFR >90 >=60 mL/min/1. 73 [...] Current interpretive data was last reviewed 2021. Testing performed by: [address] [address] Blood 08/18/2024 6:35 AM CDT 08/18/2024 7:03 AM CDT Alicia Palacio LAB BLOOD ORDERABLES Fi nal Result Performing Organization Address City/[facility]/ZIP Co de Phone Number [address] [place] [address] * Thyroid Function [place] (08/18/2024 6:35 AM CDT) Pathologist [facility] TSH 1.81 0.30 - 4.20 mcIUnit/mL Comment:Testing performed by : [address] [address] Blood 08/18/2024 6:35 AM CDT 08/18/2024 7:03 AM CDT Alicia Palacio CORPORATE QUALITY ENGINEER LAB BLOOD ORDERABLES Fi nal Result Performing Organization Address City/[facility]/ZIP Co de Phone Number [address] [place] [employer] [place], [place] [id number] * (ABNORMAL) Hemoglobin A1c (08/18/2024 6:35 AM CDT) Hgb A1C 10.3(H) 4.0 - 5.6 % Comment:Testing performed by : [address] [address] Estimated Average Glucose 249 mg/dL RAMIRO LEE Comment: The ADA recommends reporting an estimated Average Glucose (eAG) with all Hemoglobin A1c results using the equation derived from a study of 507 normal and diabetic adults. Minority populations were underrepresented and children were not included. (Diabetes Care 31:1243-6215, 2008). The eAG is not equivalent to a fasting glucose. Testing performed by: [facility], [address] [place] [address]., [address] Blood 08/18/2024 6:35 AM CDT 08/18/2024 7:03 AM CDT us Alicia Palacio NP LAB BLOOD ORDERABLES [facility] Result RAMIRO LEE [address] [facility] Department [place] [address] * (ABNORMAL) Lipid panel (08/18/2024 6:35 AM CDT) Cholesterol 148 30 - 199 mg/dL Comment: Interpretive Data [...] Interpretive Data was last revised on 2017. Testing performed by: [address] [address] Triglycerides 187(H) <=149 mg/dL RAMIRO LEE Comment: Interpretive Data Ages < or = [...] Interpretive Data was last revised on 2017. Testing performed by: [address] [address] HDL 42 >=40 mg/dL RAMIRO Comment: Interpretive Data Ages [...] Interpretive Data was last revised on 2017. Testing performed by: [address] [address] LDL, calculated 74 <=129 mg/dL RAMIRO Comment: Interpretive Data Ages [...] Interpretive Data was last revised on 2023. Testing performed by: [address] [address] Non-HDL Cholesterol 106 mg/dL RAMIRO Comment: Interpretive Data Ages < [...] Interpretive Data was last revised on 2017. Testing performed by: [address] [address] Chol/HDL ratio 4 RAIMRO Comment:Testing performed by : [address] [address] Blood 08/18/2024 6:35 AM CDT 08/18/2024 7:03 AM CDT Alicia Palacio NP LAB BLOOD ORDERABLES nal Result RAMIRO [address] [facility] Department of Laboratories [place], [place] [id number] * (ABNORMAL) Comprehensive metabolic panel (08/18/2024 6:35 AM CDT) Sodium 138 135 - 145 mmol/L Comment:Testing performed by : [address] [address] Potassium, pl 4.3 3.3 - 4.9 mmol/L RAMIRO Comment:Testing performed by : [address] [address] Chloride 101 97 - 110 mmol/L RAMIRO Comment:Testing performed by : [address] [address] CO2 23 22 - 32 mmol/L RAMIRO Comment:Testing performed by : [address] [address] Anion gap 14 2 - 15 mmol/L RAMIRO Comment:Testing performed by : [address] [address] BUN 15 6 - 25 mg/dL RAMIRO Comment:Testing performed by : [address] [address] Creatinine 0.79(L) 0.80 - 1.30 mg/dL RAMIRO Comment:Testing performed by : [address] [address] Glucose 317(H) 70 - 199 mg/dL RAMIRO Comment: Interpretive Data Fasting glucose >/= 126 mg/dl is diagnostic for diabetes. Fasting is defined as no caloric intake for at least 8 hours. Fasting glucose between 100 mg/dl to 125 mg/dl is diagnostic of prediabetes. In a patient with classic symptoms of hyperglycemia or hyperglycemic crisis, a random glucose >/= 200 mg/dl is diagnostic for diabetes. In the absence of unequivocal hyperglycemia, results should be confirmed by repeat testing. The classification and Diagnosis of Diabetes Diabetes Care 2021; 46: S19-S40. Current interpretive data was last revised 2022. Testing performed by: [address] [address] Calcium 9.8 8.5 - 10.3 mg/dL [facility] Comment:Testing performed by : [address] [address] Bilirubin, total 0.5 0.1 - 1.2 mg/dL [facility] Comment:Testing performed by : [address] [address] Protein, pl 8.1 6.5 - 8.5 g/dL [facility] Comment:Testing performed by : [address] [address] Albumin 4.8 3.5 - 5.0 g/dL [facility] Comment:Testing performed by : [address] [address] Alk phos 67 40 - 130 Units/L RAMIRO Comment:Testing performed by : [address] [address] ALT 25 7 - 55 Units/L RAMIRO Comment:Testing performed by : [address] [address] AST 18 10 - 50 Units/L [facility] Comment:Testing performed by : [facility], [address] [place] [address]., [address] Blood 08/18/2024 6:35 AM CDT 08/18/2024 7:03 AM CDT Alicia Palacio LAB BLOOD ORDERABLES Fi nal Result Performing Organization Address [facility] Co de Phone Number [address] [place] [address] * PSA screen (11/27/2023 6:09 AM CDT) [...] CDT 11/27/2023 7:57 AM CDT Alicia Palacio CORPORATE QUALITY ENGINEER LAB BLOOD ORDERABLES Fi nal Result Performing Organization Address City/[facility] Co de Phone Number [address] [place] [address] * (ABNORMAL) Albumin Creatinine Ratio, Urine (11/27/2023 [...] CDT Alicia Palacio NP LAB URINE ORDERABLES nal Result [facility] [address] [facility] Department [place] [address] from Last 3 Months or Most Recently Relevant to Health Maintenance Insurance [facility]ICE PLUS [facility]PPO Address: [place] [address] [facility] CHOICE PLUS [facility]/PPO Address: [place] [id number] [place] [address] BL CHOICE PRF PPO [place] Care Teams Lounge Car Attendant Relationship Specialty Start Date End Date Alicia Palacio NP [address] [place] [address] PCP - General Family Practice 12/12/19
--- OUTSIDE RECORDS SUMMARY | 2024-08-20 08:56 | XMS_ITS | Referral Summary ---
Author Organization [facility] [address] Address [address] [place] [address] Care Team Providers Care Finding Fastener Name Role Phone Alicia Palacio NP Primary Care Provider Encounters Date Type Department Care Team Description 08/18/2024 6:30 AM CDT Lab [facility] [place] [address] Type 2 diabetes mellitus with hyperglycemia, without long-term current use of insulin (HCC); Mixed hyperlipidemia 07/29/2024 Telephone [facility] Neurosurgery [address] [facility] [place] Floor 1, [address] [place] [address] Lilli Evans NP from Last 3 Months Allergies No known active allergies Medications blood glucose diagnostic strip 2 (two) times a day 05/09/19 18 Active omega 2-bqf-yiz-fish oil 100-160-1,000 mg capsule 1,000 mg 2 [...] complication, without long-term current use of insulin ([facility]) Inject 25 Units under the skin daily 15 mL 6 06/18/19 24 Active pen needle, diabetic 31 gauge x 5/16 needleIndications :Type 2 diabetes mellitus without complication, without long-term current use of insulin ([facility]) USE ONCE DAILY DIRECTED 100 each 6 09/29/19 24 Active Mounjaro 2.5 mg/0.5 mL pen injector injectionIndicati ons:Type 2 diabetes mellitus with hyperglycemia, without long-term current use of insulin ([facility]) INJECT 2.5 MG SUBCUTANEOUSLY ONCE A WEEK 4 mL 05/03/19 25 Active empagliflozin (Jardiance) 25 mg tablet Take 1 tablet (25 mg total) by mouth daily 90 tablet 1 05/20/19 25 Active metFORMIN (GLUCOPHAGE) 1,000 mg tabletIndications :Type 2 diabetes mellitus without complication, without long-term current use of insulin ([facility]) TAKE 1 TABLET BY MOUTH TWICE DAILY [...] complication, without long-term current use of insulin ([facility]) Take 2 tablets by mouth twice daily before breakfast and lunch. 120 tablet 1 08/13/19 25 Active lisinopriL (PRINIVIL,ZESTRIL ) 10 mg tabletIndications :Essential hypertension Take 1 tablet (10 mg total) by mouth daily 30 tablet 08/13/19 25 Active glipiZIDE (GLUCOTROL) 5 mg tabletIndications :Type 2 diabetes mellitus without complication, without long-term current use of insulin ([facility]) TAKE 2 TABLETS BY MOUTH TWICE DAILY [...] 01/24/2019 Assessment & Plan (02/19/2023 3:45 PM TON CONTAINER SHIPPER): Follow-up 1 year for annual physical. Continue [...] manner. Assessment & Plan (01/24/2019 9:20 AM TON CONTAINER SHIPPER): Follow-up 1 year for annual physical. Continue [...] complication, without long-term current use of insulin ([facility]) 08/31/2014 Immunizations Immunization Administration Dates Next Due Influenza, Unspecified 11/29/2023(Deferr ed: Patient Refused),01/17/2023(Deferred: Patient Refused),06/08/2022(Deferred: Patient Refused),04/13/2022(Deferred: Patient Refused) Tdap 06/06/2023 Social History Tobacco Use Types Packs/Day Years Used Date Smoking Tobacco: Former Cigarettes 2011 Smokeless Tobacco: Never Tobacco Cessation:Counseling Given: [...] on file Legal Sex Male 6:41 PM TON CONTAINER SHIPPER Gender Identity Not on file Sexual Orientation [...] was last reviewed 2021. Testing performed by: [address] [address] Blood 08/18/2024 6:35 AM CDT 08/18/2024 7:03 AM CDT Alicia Palacio LAB BLOOD ORDERABLES Fi nal Result Performing Organization Address [facility] Co de Phone Number [address] [place] [address] * Thyroid Function [place] (08/18/2024 6:35 AM CDT) TSH 1.81 0.30 - 4.20 mcIUnit/mL Comment:Testing performed by : [address] [address] Blood 08/18/2024 6:35 AM CDT 08/18/2024 7:03 AM CDT Alicia Palacio IT FIELD TECHNICIAN LAB BLOOD ORDERABLES Fi nal Result Performing Organization Address City/[facility] Co de Phone Number [address] [place] [address] * (ABNORMAL) Hemoglobin A1c (08/18/2024 6:35 AM CDT) Hgb A1C 10.3(H) 4.0 - 5.6 % Comment:Testing performed by : [address] [address] Estimated Average Glucose 249 mg/dL RAMIRO LEE Comment: The ADA recommends reporting an estimated Average Glucose (eAG) with all Hemoglobin A1c results using the equation derived from a study of 507 normal and diabetic adults. Minority populations were underrepresented and children were not included. (Diabetes Care 31:9125-5098, 2008). The eAG is not equivalent to a fasting glucose. Testing performed by: [address] [address] Blood 08/18/2024 6:35 AM CDT 08/18/2024 7:03 AM CDT us Alicia Palacio NP LAB BLOOD ORDERABLES nal Result RAMIRO LEE [address] [facility] Department [place] [address] * (ABNORMAL) Lipid panel (08/18/2024 6:35 AM [...] last revised on 2017. Testing performed by: [address] [address] Triglycerides 187(H) <=149 mg/dL RAMIRO LEE Comment: [...] last revised on 2017. Testing performed by: [address] [address] HDL 42 >=40 mg/dL [facility] Comment: Interpretive Data Ages < or = [...] last revised on 2017. Testing performed by: [address] [address] LDL, calculated 74 <=129 mg/dL RAMIRO Comment: [...] last revised on 2023. Testing performed by: [address] [address] Non-HDL Cholesterol 106 mg/dL RAMIRO LEE Comment: Interpretive Data Ages [...] last revised on 2017. Testing performed by: [address] [address] Chol/HDL ratio 4 RAMIRO Comment:Testing performed by : [address] [address] Blood 08/18/2024 6:35 AM CDT 08/18/2024 7:03 AM CDT us Alicia Palacio NP LAB BLOOD ORDERABLES Fi nal Result RAMIRO [address] [facility] Department [place] [address] * (ABNORMAL) Comprehensive metabolic panel (08/18/2024 6:35 AM CDT) Sodium 138 135 - 145 mmol/L Comment:Testing performed by : [address] [address] Potassium, pl 4.3 3.3 - 4.9 mmol/L RAMIRO LEE Comment:Testing performed by : [address] [address] Chloride 101 97 - 110 mmol/L RAMIRO LEE Comment:Testing performed by : [address] [address] CO2 23 22 - 32 mmol/L RAMIRO LEE Comment:Testing performed by : [address] [address] Anion gap 14 2 - 15 mmol/L RAMIRO Comment:Testing performed by : [address] [address] BUN 15 6 - 25 mg/dL RAMIRO Comment:Testing performed by : [address] [address] Creatinine 0.79(L) 0.80 - 1.30 mg/dL RAMIRO Comment:Testing performed by : [address] [address] Glucose 317(H) 70 - 199 mg/dL [facility] Comment: Interpretive Data Fasting glucose >/= 126 [...] was last revised 2022. Testing performed by: [address] [address] Calcium 9.8 8.5 - 10.3 mg/dL RAMIRO Comment:Testing performed by : [address] [address] Bilirubin, total 0.5 0.1 - 1.2 mg/dL RAMIRO Comment:Testing performed by : [address] [address] Protein, pl 8.1 6.5 - 8.5 g/dL RAMIRO Comment:Testing performed by : [address] [address] Albumin 4.8 3.5 - 5.0 g/dL RAMIRO Comment:Testing performed by : [address] [address] Alk phos 67 40 - 130 Units/L RAMIRO Comment:Testing performed by : [address] [address] ALT 25 7 - 55 Units/L RAMIRO Comment:Testing performed by : [facility], [address] [place] [address]., [address] AST 18 10 - 50 Units/L RAMIRO Comment:Testing performed by : [facility], [address] [place] [address]., [address] Blood 08/18/2024 6:35 AM CDT 08/18/2024 7:03 AM CDT Alicia Palacio LAB BLOOD ORDERABLES Fi nal Result Performing Organization Address [facility] Co de Phone Number [address] [place] [address] * PSA screen (11/27/2023 6:09 AM CDT) [...] ORDERABLES Fi nal Result Performing Organization Address [facility] Co de Phone Number [address] [place] [address] * (ABNORMAL) Albumin Creatinine Ratio, Urine (11/27/2023 6:06 AM CDT) Albumin Ur 26.2 mg/L Comment: Interpretive Data No reference range established. Current interpretive data was last revised 2018. Creatinine Ur 85.8 mg/dL RAMIRO Comment: Interpretive Data No reference range established. Current interpretive data was last revised 2018. Albumin Creatinine Ratio, Ur 31(H) 1 - 29 mg/g RAMIRO LEE Urine 11/27/2023 6:06 AM CDT 11/27/2023 7:53 AM CDT Alicia Palacio IT FIELD TECHNICIAN LAB URINE ORDERABLES Fi nal Result Performing Organization Address City/State/[facility] Co de Phone Number RAMIRO [address] [facility] Department [place] [address] from Last 3 Months or Most Recently Relevant to Health Maintenance Insurance [facility] CHOICE PLUS [facility] CHOICE PLUS BL CHOICE PRF PPO [place] Care Teams Finding Fastener Relationship Specialty Start Date End Date Alicia Palacio NP [address] [facility] [address] [place], [place] [address] PCP - General Family Practice 12/12/19
--- NOTE | 2024-08-20 09:17 | PC.NURSE ---
covid culture sent to lab
[2024-08-20 09:19] LABS: Hematocrit 45.7 % (40.0-54.0); Hemoglobin 15.5 g/dL (14.0-18.0); Mean Corpuscular HGB Conc 33.9 g/dL (32-36); Mean Corpuscular Hemoglobin 30.5 pg (27.0-31.0); Mean Corpuscular Volume 89.8 fL (78.0-102.0); Mean Platelet Volume 10.5 fl (8.7-11.0); Platelet Count Result 248 K/mm3 (150-420); Red Blood Count 5.09 M/mm3 (4.70-6.10); Red Cell Distribution Width 13.2 % (11.6-14.4); White Blood Count 8.1 K/mm3 (4.8-10.8)
[2024-08-20 09:24] LABS: Add Urine Microscopic? NO; Appearance Urine Clear (Clear); Bilirubin Urine Negative (Negative); Blood Urine Negative (Negative); Color Urine Light Yellow (Yellow); Glucose Urine UA 3+ (Negative); Ketones Urine 3+ (Negative); Leukocyte Esterase Ur Negative LEU/UL (Negative); Nitrate Urine Negative (Negative); Protein Urine Negative (Negative)
[2024-08-20 09:43] LABS: Band Neutrophils Percent 0 % (0-6); Neutrophils Absolute Manual 5.58 K/mm3 (1.3-6.7); Neutrophils Percent Manual 69 % (46-73); Total Cells Counted 100
[2024-08-20 09:44] LABS: Alanine Aminotransferase 34 U/L (6-50); Albumin Level 4.7 g/dL (3.5-5.1); Alkaline Phosphatase 54 U/L (38-126); Anion Gap 9 mmol/L (4-12); Aspartate Amino Transferase 35 U/L (17-59); Bilirubin,Total 1.2 mg/dL (0.2-1.3); Blood Urea Nitrogen 14 mg/dL (9-20); Calcium 8.4 mg/dL (8.4-10.2); Carbon Dioxide 26 mmol/L (22-30); Chloride 99 mmol/L (98-107); Estimated CRCL calculation 103 ml/min; Estimated Glomerular Filt Rate > 60; Glucose 221 mg/dL (65-110); Lipase 114 U/L (23-300); Lymphocytes Absolute Manual 1.29 K/mm3 (1.1-4.5); Lymphocytes Percent Manual 16 % (18-44); Monocytes Absolute Manual 1.21 K/mm3 (0.1-0.90); Monocytes Percent Manual 15 % (3-9); Osmolality Calculated 285 mOsm/kg (285-295); Platelet Estimate Adequate (Adequate); Potassium 4.5 mmol/L (3.4-5.0); Schistocytes None Seen; Sodium 134 mmol/L (137-145); Total Protein 7.2 g/dL (6.3-8.2)
[2024-08-20 09:59] LABS: Influenza A QL RT-PCR Negative (Negative); Influenza B QL RT-PCR Negative (Negative); RSV RNA, RT-PCR Negative (Negative); SARS-CoV-2 RNA PCR Negative (Negative)
[2024-08-20 10:09] LABS: Troponin I 0.022 ng/mL (0.000-0.034)
--- OUTSIDE RECORDS SUMMARY | 2024-08-20 10:10 | XMS_ITS | Referral Summary ---
Author Organization [facility] [address] Address [address] [place] [address] Care Team Providers Care Bakery Team Leader Name Role Phone Alicia Palacio NP Primary Care Provider Encounters Date Type Department Care Team Description 08/18/2024 6:30 AM CDT Lab [facility] Lab [facility] [place] [address] Type 2 diabetes mellitus with hyperglycemia, without long-term current use of insulin (HCC); Mixed hyperlipidemia 07/29/2024 Telephone [facility] Neurosurgery [address] [facility] ([place], [place]) Floor 1, [address] [place] [address] Lilli Evans NP from Last 3 Months Allergies No known active allergies Medications blood glucose diagnostic strip 2 (two) times a day 05/09/19 18 Active omega 6-uit-rwf-fish oil 100-160-1,000 mg capsule 1,000 mg 2 [...] complication, without long-term current use of insulin ([facility]) Inject 25 Units under the skin daily 15 mL 6 06/18/19 24 Active pen needle, diabetic 31 gauge x 5/16 needleIndications :Type 2 diabetes mellitus without complication, without long-term current use of insulin ([facility]) USE ONCE DAILY DIRECTED 100 each 6 09/29/19 24 Active Mounjaro 2.5 mg/0.5 mL pen injector injectionIndicati ons:Type 2 diabetes mellitus with hyperglycemia, without long-term current use of insulin ([facility]) INJECT 2.5 MG SUBCUTANEOUSLY ONCE A WEEK 4 mL 05/03/19 25 Active empagliflozin (Jardiance) 25 mg tablet Take 1 tablet (25 mg total) by mouth daily 90 tablet 1 05/20/19 25 Active metFORMIN (GLUCOPHAGE) 1,000 mg tabletIndications :Type 2 diabetes mellitus without complication, without long-term current use of insulin ([facility]) TAKE 1 TABLET BY MOUTH TWICE DAILY [...] complication, without long-term current use of insulin ([facility]) Take 2 tablets by mouth twice daily before breakfast and lunch. 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 Continue [...] manner. Assessment & Plan (01/24/2019 9:20 AM AUTOMOTIVE SERVICE PROFESSIONAL): Follow-up 1 year for annual physical. Continue [...] complication, without long-term current use of insulin ([facility]) 08/31/2014 Immunizations Immunization Administration Dates Next Due [...] on file Legal Sex Male 6:41 PM AUTOMOTIVE SERVICE PROFESSIONAL Gender Identity Not on file Sexual Orientation [...] was last reviewed 2021. Testing performed by: [address] [address] Blood 08/18/2024 6:35 AM CDT 08/18/2024 7:03 AM CDT Alicia Palacio LAB BLOOD ORDERABLES Fi nal Result Performing Organization Address [facility] Co de Phone Number [address] [place] [address] * Thyroid Function [place] (08/18/2024 6:35 AM CDT) TSH 1.81 0.30 - 4.20 mcIUnit/mL Comment:Testing performed by : [address] [address] Blood 08/18/2024 6:35 AM CDT 08/18/2024 7:03 AM CDT Alicia Palacio PLASTER MOLD MAKER LAB BLOOD ORDERABLES Fi nal Result Performing Organization Address City/[facility] Co de Phone Number [address] [place] [address] * (ABNORMAL) Hemoglobin A1c (08/18/2024 6:35 AM CDT) Hgb A1C 10.3(H) 4.0 - 5.6 % Comment:Testing performed by : [address] [address] Estimated Average Glucose 249 mg/dL [facility]IR[facility] LEE Comment: The ADA recommends reporting an estimated Average Glucose (eAG) with all Hemoglobin A1c results using the equation derived from a study of 507 normal and diabetic adults. Minority populations were underrepresented and children were not included. (Diabetes Care 31:9112-0307, 2008). The eAG is not equivalent to a fasting glucose. Testing performed by: [address] [address] Blood 08/18/2024 6:35 AM CDT 08/18/2024 7:03 AM CDT us Alicia Palacio NP LAB BLOOD ORDERABLES nal Result RAMIRO LEE [address] [facility] [place] [address] * (ABNORMAL) Lipid panel (08/18/2024 6:35 AM [...] last revised on 2017. Testing performed by: [address] [address] Triglycerides 187(H) <=149 mg/dL RAMIRO LEE Comment: [...] last revised on 2017. Testing performed by: [address] [address] HDL 42 >=40 mg/dL [facility] Comment: Interpretive Data Ages < or [...] last revised on 2017. Testing performed by: [address] [address] LDL, calculated 74 <=129 mg/dL RAMIRO Comment: [...] last revised on 2023. Testing performed by: [address] [address] Non-HDL Cholesterol 106 mg/dL [facility]IRO LEE Comment: [...] last revised on 2017. Testing performed by: [address] [address] Chol/HDL ratio 4 RAMIRO Comment:Testing performed by : [address] [address] Blood 08/18/2024 6:35 AM CDT 08/18/2024 7:03 AM CDT us Alicia Palacio NP LAB BLOOD ORDERABLES Fi nal Result RAMIRO [address] [facility] [place] [address] * (ABNORMAL) Comprehensive metabolic panel (08/18/2024 6:35 AM CDT) Sodium 138 135 - 145 mmol/L Comment:Testing performed by : [address] [address] Potassium, pl 4.3 3.3 - 4.9 mmol/L RAMIRO LEE Comment:Testing performed by : [address] [address] Chloride 101 97 - 110 mmol/L RAMIRO LEE Comment:Testing performed by : [address] [address] CO2 23 22 - 32 mmol/L RAMIRO LEE Comment:Testing performed by : [address] [address] Anion gap 14 2 - 15 mmol/L RAMIRO Comment:Testing performed by : [address] [address] BUN 15 6 - 25 mg/dL RAMIRO Comment:Testing performed by : [address] [address] Creatinine 0.79(L) 0.80 - 1.30 mg/dL RAMIRO Comment:Testing performed by : [address] [address] Glucose 317(H) 70 - 199 mg/dL [facility] Comment: Interpretive Data Fasting glucose >/= 126 [...] was last revised 2022. Testing performed by: [address] [address] Calcium 9.8 8.5 - 10.3 mg/dL RAMIRO Comment:Testing performed by : [address] [address] Bilirubin, total 0.5 0.1 - 1.2 mg/dL RAMIRO Comment:Testing performed by : [address] [address] Protein, pl 8.1 6.5 - 8.5 g/dL RAMIRO Comment:Testing performed by : [address] [address] Albumin 4.8 3.5 - 5.0 g/dL RAMIRO Comment:Testing performed by : [address] [address] Alk phos 67 40 - 130 Units/L RAMIRO Comment:Testing performed by : [address] [address] ALT 25 7 - 55 Units/L RAMIRO Comment:Testing performed by : [facility], [address] [place] [address]., [address] AST 18 10 - 50 Units/L RAMIRO Comment:Testing performed by : [facility], [address] [place] [address]., [address] Blood 08/18/2024 6:35 AM CDT 08/18/2024 7:03 AM CDT Alicia Palacio LAB BLOOD ORDERABLES Fi nal Result Performing Organization Address [facility] Co de Phone Number [address] [email or web address] [address] * PSA screen (11/27/2023 6:09 AM CDT) [...] Fi nal Result Performing Organization Address [facility] Co de Phone Number [address] [email or web address] [address] * (ABNORMAL) Albumin Creatinine Ratio, Urine (11/27/2023 [...] CDT 11/27/2023 7:53 AM CDT Alicia Palacio PLASTER MOLD MAKER LAB URINE ORDERABLES Fi nal Result Performing Organization Address City/State/[facility] Co de Phone Number RAMIRO [address] [facility] Department [place] [address] from Last 3 Months or Most Recently Relevant to Health Maintenance Insurance [facility] CHOICE PLUS [facility] HMO/PPO Address: [place] [address] [facility] CHOICE PLUS [facility] HMO/PPO Address: [address] [address] [place] [address] BL CHOICE PRF P[place] Care Teams Bakery Team Leader Relationship Specialty Start Date End Date Alicia Palacio NP [address] [facility] [address] [place], [place] [address] PCP - General Family Practice 12/12/19
--- OUTSIDE RECORDS SUMMARY | 2024-08-20 10:10 | XMS_ITS | Clinical Summary ---
Author Organization [facility] [address] Address [address] [place] [address] Care Team Providers Care Animal Ride Attendant Name Role Phone Alicia Palacio NP Primary Care Provider Allergies No known active allergies Medications blood glucose diagnostic strip 2 (two) times a day 05/09/19 18 Active omega 4-lpn-ftp-fish oil 100-160-1,000 mg capsule 1,000 mg 2 [...] long-term current use of insulin ([facility]) INJECT 2.5 MG SUBCUTANEOUSLY ONCE A WEEK 4 mL 05/03/19 25 Active empagliflozin (Jardiance) 25 mg tablet Take 1 tablet (25 mg total) by mouth daily 90 tablet 1 05/20/19 25 Active metFORMIN (GLUCOPHAGE) 1,000 mg tabletIndications :Type 2 diabetes mellitus without complication, without long-term current use of insulin ([facility]) TAKE 1 TABLET BY MOUTH [...] long-term current use of insulin ([facility]) Take 2 tablets by mouth twice daily before breakfast and lunch. 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 Continue [...] manner. Assessment & Plan (01/24/2019 9:20 AM INSURANCE ANALYST): Follow-up 1 year for annual physical. Continue [...] Team Description 08/18/2024 6:[address] 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 Testing performed by: [address] [address] Blood 08/18/2024 6:35 AM CDT 08/18/2024 7:03 AM CDT Alicia Palacio LAB BLOOD ORDERABLES Fi nal Result Performing Organization Address City/[facility]/ZIP Co de Phone Number [address] [place] [address] * Thyroid Function [place] (08/18/2024 6:35 AM CDT) Pathologist [facility] TSH 1.81 0.30 - 4.20 mcIUnit/mL Comment:Testing performed by : [address] [address] Blood 08/18/2024 6:35 AM CDT 08/18/2024 7:03 AM CDT Alicia Palacio ICE PLATFORM SUPERVISOR LAB BLOOD ORDERABLES Fi nal Result Performing Organization Address City/[facility]/ZIP Co de Phone Number [address] [employer] [place], [place] [address] * (ABNORMAL) Hemoglobin A1c (08/18/2024 6:35 AM CDT) Hgb A1C 10.3(H) 4.0 - 5.6 % Comment:Testing performed by : [address] [address] Estimated Average Glucose 249 mg/dL RAMIRO LEE Comment: The ADA recommends reporting an estimated Average Glucose (eAG) with all Hemoglobin A1c results using the equation derived from a study of 507 normal and diabetic adults. Minority populations were underrepresented and children were not included. (Diabetes Care 31:3029-1822, 2008). The eAG is not equivalent to a fasting glucose. Testing performed by: [facility], [address] [place] [address]., [address] Blood 08/18/2024 6:35 AM CDT 08/18/2024 7:03 AM CDT us Alicia Palacio NP LAB BLOOD ORDERABLES [facility] Result RAMIRO LEE [address] [facility] Department [place] [address] * (ABNORMAL) Lipid panel (08/18/2024 6:35 AM [...] last revised on 2017. Testing performed by: [address] [address] Triglycerides 187(H) <=149 mg/dL RAMIRO LEE Comment: [...] last revised on 2017. Testing performed by: [address] [address] HDL 42 >=40 mg/dL RAMIRO Comment: Interpretive [...] last revised on 2017. Testing performed by: [address] [address] LDL, calculated 74 <=129 mg/dL RAMIRO Comment: [...] last revised on 2023. Testing performed by: [address] [address] Non-HDL Cholesterol 106 mg/dL RAMIRO Comment: Interpretive [...] last revised on 2017. Testing performed by: [address] [address] Chol/HDL ratio 4 RAMIRO Comment:Testing performed by : [address] [address] Blood 08/18/2024 6:35 AM CDT 08/18/2024 7:03 AM CDT Alicia Palacio NP LAB BLOOD ORDERABLES nal Result RAMIRO [address] [facility] Department of Laboratories [place], [place] [id number] * (ABNORMAL) Comprehensive metabolic panel (08/18/2024 6:35 AM CDT) Sodium 138 135 - 145 mmol/L Comment:Testing performed by : [address] [address] Potassium, pl 4.3 3.3 - 4.9 mmol/L RAMIRO Comment:Testing performed by : [address] [address] Chloride 101 97 - 110 mmol/L RAMIRO Comment:Testing performed by : [address] [address] CO2 23 22 - 32 mmol/L RAMIRO Comment:Testing performed by : [address] [address] Anion gap 14 2 - 15 mmol/L RAMIRO Comment:Testing performed by : [address] [address] BUN 15 6 - 25 mg/dL RAMIRO Comment:Testing performed by : [address] [address] Creatinine 0.79(L) 0.80 - 1.30 mg/dL RAMIRO Comment:Testing performed by : [address] [address] Glucose 317(H) 70 - 199 mg/dL RAMIRO [...] was last revised 2022. Testing performed by: [address] [address] Calcium 9.8 8.5 - 10.3 mg/dL [facility] Comment:Testing performed by : [address] [address] Bilirubin, total 0.5 0.1 - 1.2 mg/dL [facility] Comment:Testing performed by : [address] [address] Protein, pl 8.1 6.5 - 8.5 g/dL [facility] Comment:Testing performed by : [address] [address] Albumin 4.8 3.5 - 5.0 g/dL [facility] Comment:Testing performed by : [address] [address] Alk phos 67 40 - 130 Units/L RAMIRO Comment:Testing performed by : [address] [address] ALT 25 7 - 55 Units/L RAMIRO Comment:Testing performed by : [address] [address] AST 18 10 - 50 Units/L [facility] Comment:Testing performed by : [facility], [address] [place] [address]., [address] Blood 08/18/2024 6:35 AM CDT 08/18/2024 7:03 AM CDT Alicia Palacio LAB BLOOD ORDERABLES Fi nal Result Performing Organization Address [facility] Co de Phone Number [address] [place] [address] * PSA screen (11/27/2023 6:09 AM CDT) [...] CDT 11/27/2023 7:57 AM CDT Alicia Palacio ICE PLATFORM SUPERVISOR LAB BLOOD ORDERABLES Fi nal Result Performing Organization Address City/[facility] Co de Phone Number [address] [place] [address] * (ABNORMAL) Albumin Creatinine Ratio, Urine (11/27/2023 [...] URINE ORDERABLES nal Result [facility]ERNER [facility] [address] [facility] Department [place] [address] from Last 3 Months or Most Recently Relevant to Health Maintenance Insurance [facility] CHOICE PLUS [facility] CHOICE PLUS BL CHOICE PRF PPO [place] Care Teams Animal Ride Attendant Relationship Specialty Start Date End Date Alicia Palacio NP [address] [place] [address] PCP - General Family Practice 12/12/19
== END 2024-08-20 10:22 | disposition home or self-care (01) ==
PROVIDERS: Emergency Provider Internal Medicine Critical Care Medicine
DX: E11.65 Type 2 diabetes mellitus with hyperglycemia (principal); R50.9 Fever, unspecified; I10 Essential (primary) hypertension; Z79.4 Long term (current) use of insulin; Z79.899 Other long term (current) drug therapy; Z20.822 Contact with and (suspected) exposure to COVID-19
CPT/HCPCS: 36415; 80053; 81003; 83605; 83690; 84443; 84484; 85025; 87637; 99284

== ENCOUNTER 2024-12-10 04:39 | Emergency (ER) | payer BC, SELFPAY ==
--- NOTE | ~2024-12-10 | XR_ITS ---
Examination: XR elbow RT min 3V Clinical History: elbow pain and swelling/NO TRAUMA Comparison: None Technique: 4 views right elbow Findings/impression: 1. No acute fracture, dislocation, or other acute abnormality identified of right elbow. 2. Focal subtle irregularity along lateral articular surface of radial head probably degenerative or chronic injury. Reviewed, dictated and finalized at location R.
--- OUTSIDE RECORDS SUMMARY | 2024-12-10 04:42 | XMS_ITS | Clinical Summary ---
Author Organization [facility] Address [address] [place] [address] Care Team Providers Care Mandrel Cleaner Name Role Phone Alicia Palacio Primary Care Provider [phone] Allergies No known active allergies Medications atorvastatin [...] complication, without long-term current use of insulin ([facility]) 08/31/2014 Immunizations Immunization Administration Dates [...] 6:45 PM CDT Height 177.8 cm (5' 10) 06/12/2023 6:45 PM CDT Body Mass Index [...] 01/02/2023 01/02/2022, 08/11, 09/04/2021, Additional history exists Hemoglobin A1C 11/21/2023 05/21/2023, 01/10, 07/11/2022, Additional history exists COVID-19 Vaccine ( - 2023- season) 2024 DTaP, Tdap and Td Vaccines (2 - [...] home safety measures General No Edelmira Webster RN Procedures Procedure Name Priority Date/Time Associated Diagnosis Comments HEMOGLOBIN, GLYCOSYLATED Routine 09/05/2021 5:39 AM CDT LIPID PANEL Routine 09/04/2021 5:40 AM CDT from Last 3 Months or Most Recently Relevant to Health Maintenance Results * (ABNORMAL) HEMOGLOBIN, GLYCOSYLATED (09/05/2021 5:39 AM CDT) HGB A1C 14.6(H) <5.7 % 09/05/2021 8:55 AM CDT [facility] Comment: ADA GUIDELINES 2010 5.7 TO 6.4% INCREASED RISK OF DIABETES > OR = 6.5% CONSISTENT WITH DIABETES [place] [address] ESTIMATED AVG GLUCOSE 372 mg/dL 09/05/2021 8:55 AM CDT [facility] 09/05/2021 5:39 AM CDT Jagdeep Alcantar MD LABORATORY Final Result [facility] [address] [place] [address], [place] [phone] * (ABNORMAL) LIPID PANEL (09/04/2021 5:40 AM CDT) CHOLESTEROL 218(H) <200 MG/DL 09/04/2021 7:[address] [facility] TRIGLYCERIDES 679(H) <150 MG/DL 09/04/2021 7:[address] [facility] HDL 42 >40.0 MG/DL 09/04/2021 7:[address] [facility] LDL (CALCULATED) TRIGLYCERIDES >400 MG/DL, SEE DIRECT LDL REPORT <100 MG/DL 09/04/2021 7:[address] [facility] Comment:TRIGLYCERIDE >400 IN VALIDATES FRACTIONATION. NON HDL CHOLESTEROL 176(H) <130 MG/DL 09/04/2021 7:12 AM [facility] Comment: NOTE: WHEN THE TRIGLYCERIDES ARE >200 mg/dL, NON HDL C IS A SECONDARY TARGET OF THERAPY, WITH A GOAL 30 mg/dL HIGHER THAN THE IDENTIFIED LDL C GOAL. CHOL/HDL RATIO 5.2(H) 0.0 - 4.5 09/04/2021 7:[address] [facility] VLDL CALCULATION UNABLE TO CALCULATE RESULT 5 - 55 MG/DL 09/04/2021 7:12 AM [facility] Comment:TRIGLYCERIDE >400 IN VALIDATES FRACTIONATION. LIPID INTERPRETATION 09/04/2021 7:[address] [facility] Comment: NIH CONCENSUS REPORT RECOMMENDATIONS: ADULT CHILD LOW RISK: CHOLESTEROL <200 <170 TRIGLYCERIDE <150 --- HDL >=60 --- LDL <100 <110 BORDERLINE: CHOLESTEROL 200-239 170-199 TRIGLYCERIDE 150-199 --- HDL 40-59 --- LDL 100-159 110-129 HIGH RISK: CHOLESTEROL >=240 >=200 TRIGLYCERIDE >=200 --- HDL <40 --- LDL >=160 >=130 09/04/2021 5:40 AM CDT us Jagdeep Alcantar MD LABORATORY Final Result [facility] [address] [place] [address], from Last 3 Months or Most Recently Relevant to Health Maintenance Insurance [facility] Advance Directives Documents on File Type Date Recorded Patient Supervisor Cigarette Making Department Expl anation Legal Documents 05/23/2016 SLEGAL * [...] 8:44 AM 01/18/2020 11:46 AM Care Teams Mandrel Cleaner Relationship Specialty Start Date End Date Alicia Palacio APNP PCP - General NURSE PRACTITIONER 11/22/20
--- OUTSIDE RECORDS SUMMARY | 2024-12-10 04:42 | XMS_ITS | Clinical Summary ---
Author Organization [facility] [address] Address [address] [place] [address] Care Team Providers Care Morning Babysitter Name Role Phone Alicia Palacio NP Primary Care Provider Allergies No known active allergies Medications blood glucose diagnostic strip 2 (two) times a day 05/09/19 18 Active omega 1-qoi-nul-fish oil 100-160-1,000 mg capsule 1,000 mg 2 (two) times a day Active aspirin 325 mg tablet Take 1 tablet (325 mg total) by mouth daily Active pen needle, diabetic 31 gauge x 5/16 needleIndications: Type 2 diabetes mellitus without complication, without long-term current use of insulin (HCC) USE ONCE DAILY DIRECTED 100 each 6 09/29/19 24 Active empagliflozin (Jardiance) 25 mg tabletIndications: Type 2 diabetes mellitus without complication, without long-term current use of insulin (HCC) Take 1 tablet (25 mg total) by mouth daily 90 tablet 1 08/23/19 25 Active clopidogreL (PLAVIX) 75 mg tablet Take 1 tablet (75 mg total) by mouth daily 90 tablet 3 08/23/19 25 026 Active cyclobenzaprine (FLEXERIL) 10 mg tablet Take 1 tablet (10 mg total) by mouth 3 (three) times a day as needed for muscle spasms for up to 10 days 90 tablet 2 08/23/19 25 Active doxycycline 100 mg tablet Take 1 tablet/capsul e (100 mg total) by mouth 2 (two) times a day 06/26/19 25 Active SEMGLEE-yfgn 100 unit/mL (3 mL) pen for injection 08/21/19 25 Active polymyxin B-trimethoprim (POLYTRIM) ophthalmic solution INSTILL 1 DROP INTO LEFT EYE EVERY 3 HOURS FOR 7 DAYS WHILE AWAKE. DO NOT EXCEED 6 DOSES IN 24 HOURS. 06/26/19 25 Active blood-glucose sensor (FreeStyle Aki 3 Sensor) deviceIndications: Type 2 diabetes mellitus with hyperglycemia, with long-term current use of insulin ([facility]) Freestyle Aki 3 sensor use for 14 days to monitor blood sugar. 6 each 3 10/04/19 25 Active atorvastatin (LIPITOR) 10 mg tabletIndications: Mixed hyperlipidemia Take 1 tablet (10 mg total) by mouth daily 90 tablet 1 10/18/19 25 Active gemfibroziL (LOPID) 600 mg tabletIndications: Mixed hyperlipidemia Take 1 tablet (600 mg total) by mouth 2 (two) times a day 180 tablet 1 10/18/19 25 Active lisinopriL (PRINIVIL,ZESTRIL) 10 mg tabletIndications: Essential hypertension Take 1 tablet (10 mg total) by mouth daily 90 tablet 1 10/18/19 25 Active glipiZIDE (GLUCOTROL) 5 mg tabletIndications: Type 2 diabetes mellitus without complication, without long-term current use of insulin ([facility]) TAKE TWO (2) TABLETS BY MOUTH TWICE DAILY BEFORE BREAKFAST AND LUNCH. 360 tablet 1 10/18/19 25 Active metFORMIN (GLUCOPHAGE) 1,000 mg tabletIndications: Type 2 diabetes mellitus without complication, without long-term current use of insulin ([facility]) Take 1 tablet (1,000 mg total) by mouth 2 (two) times a day with meals 180 tablet 1 10/18/19 25 Active pregabalin (LYRICA) 75 mg capsuleIndications :Diabetic Peripheral Neuropathy Take 1 capsule (75 mg total) by mouth 2 (two) times a day 180 capsule 3 11/14/19 25 Active tirzepatide (Mounjaro) 7.5 mg/0.5 mL pen injector injectionIndicatio ns:Type 2 diabetes mellitus without complication, without long-term current use of insulin ([facility]) Inject 0.5 mL (7.5 mg total) under the skin every 7 days 2 mL 1 11/13/19 25 Active insulin glargine (LANTUS) 100 unit/mL (3 mL) pen for injectionIndicatio ns:Type 2 diabetes mellitus without complication, without long-term current use of insulin (HCC) Inject 25 Units under the skin daily 15 mL 6 08/23/19 25 025 Discontin ued(Patie nt Reported) tirzepatide (Mounjaro) 5 mg/0.5 mL pen injector injectionIndicatio ns:Type 2 diabetes mellitus with hyperglycemia, without long-term current use of insulin (HCC) Inject 0.5 mL (5 mg total) under the skin every 7 days 2 mL 10/18/19 25 025 Discontin ued(Alter beto therapy) pregabalin (LYRICA) 75 mg capsuleIndications :Type 2 diabetes mellitus without complication, without long-term current use of insulin (HCC) Take 1 capsule (75 mg total) by mouth 2 (two) times a day 60 capsule 10/21/19 25 025 Discontin ued(Reord er) Active Problems Problem Noted Date Diagnosed Date History of TIA (transient ischemic attack) 06/04 Overview (06/05/2023): Risk factor modification Sensorineural hearing loss (SNHL) of both ears 1 04/19/2022 Noise-induced hearing loss of both ears 02/17/20 23 Type 2 diabetes mellitus with hyperglycemia 12/11 Axillary abscess 09/03/2021 COVID-19 01/18/2020 Annual physical exam 01/24/2019 Assessment & Plan (02/19/2023 3:45 PM WEATHER FORECASTER): Follow-up 1 year for annual physical. Continue [...] manner. Assessment & Plan (01/24/2019 9:20 AM WEATHER FORECASTER): Follow-up 1 year for annual physical. Continue [...] current use of insulin ([facility]) 08/31/2014 Encounters Date Type Department Care Team Description 09/16/2024 Telephone [facility] Medicine Neurosurgery [address], [address] [place] [address] Lilli Evans NP from Last 3 Months Immunizations Immunization Administration Dates Next Due Influenza, Unspecified 11/29/2023(Deferr ed: Patient Refused),01/17/2023(Deferred: Patient Refused),06/08/2022(Deferred: Patient Refused),04/13/2022(Deferred: Patient Refused) Tdap 06/06/2023 Surgical History Surgery Date Site/Laterality Comments TYMPANOSTOMY TUBE PLACEMENT 03/12/1979 - 03/11/1980 [place] Medical History Medical History Date Comments Hyperlipidemia Hypertension Diabetes mellitus Tetralogy of Fallot Heart disease HL (hearing loss) Type 2 diabetes mellitus Family History Medical History Relation Name Comments [...] points, staff should administer the PHQ-9) 0 08/22/2024 Sex and Gender Information Value Date Recorded Sex Assigned at Not on file Legal Sex Male 6:41 PM [employer]ER [employer]ECA[employer] Gender Identity Not on file Sexual Orientation Not on file Obstetrics History Last Filed Vital Signs Vital Sign Reading Time Taken Comments Blood Pressure 128/70 08/22/2024 8:17 AM CDT Pulse 79 08/22/2024 8:17 AM CDT Temperature 36.8 C (98.2 F) 08/22/2024 8:17 AM CDT Respiratory Rate 18 08/22/2024 8:17 AM CDT Oxygen Saturation 98% 08/22/2024 8:17 AM CDT Inhaled Oxygen Concentration - - Weight 88.9 kg (196 lb) 08/22/2024 8:17 AM CDT Height 177.8 cm (5' 10) 08/22/2024 8:17 AM CDT Body Mass Index 28.12 08/22/2024 8:17 AM CDT Plan of Treatment Health Maintenance Due Date Last Done Comments Colon Cancer Screening-DNA Stool 1971 Hepatitis C Screening 1971 Dilated Eye Exam 1971 Hepatitis B Screening 1989 Pneumococcal vaccine <65 (1 of 2 - PCV) 1990 Zoster Vaccine (1 of 2) 2021 Foot Exam 01/27/2024 01/26/2023, 05/0 07/2022, 04/13/2022, Additional history exists Influenza Vaccine (#1) 2024 Albumin Creatinine Ratio, Urine 11/26/2024 11/27/2023, 01/22/2023, 01/02/2022 Hemoglobin A1C 02/17/2025 08/18/2024, 11/10, 05/21/2023, Additional history exists Lipid Panel 08/18/2025 08/18/2024, 11/10, 01/22/2023, Additional history exists eGFR 08/18/2025 08/18/2024, 11/10, 05/21/2023, Additional history exists Depression Screening 08/22/2025 08/22/2024, 11/29/2023, 08/16/2022, Additional history exists Regular Well Visit/Exam 18-64 08/22/2025, 01/26/2023, 01/06/2022, Additional history exists Prostate Cancer Screening-PSA 11/26/2025, [...] Routine 08/18/2024 6:35 AM CDT Mixed hyperlipidemia PSA SCREEN Routine [...] was last reviewed 2021. Testing performed by: [address] [address] Blood 08/18/2024 6:35 AM CDT 08/18/2024 7:03 AM CDT Alicia Palacio LAB BLOOD ORDERABLES Fi nal Result Performing Organization Address [facility] Co de Phone Number [place] [phone] [facility]ly [facility] [place] [address] * (ABNORMAL) Hemoglobin A1c (08/18/2024 6:35 AM CDT) [facility] Hgb A1C 10.3(H) 4.0 - 5.6 % Comment:Testing performed by : [address] [address] Estimated Average Glucose 249 mg/dL RAMIRO Comment: The ADA recommends reporting an estimated Average Glucose (eAG) with all Hemoglobin A1c results using the equation derived from a study of 507 normal and diabetic adults. Minority populations were underrepresented and children were not included. (Diabetes Care 31:7277-1279, 2008). The eAG is not equivalent to a fasting glucose. Testing performed by: [address] [address] Blood 08/18/2024 6:35 AM CDT 08/18/2024 7:03 AM CDT Alicia Palacio NP LAB BLOOD ORDERABLES Fi nal Result Performing Organization Address [facility] Co de Phone Number [place] [phone] [facility] [place] [address] * (ABNORMAL) Lipid panel (08/18/2024 6:35 AM [...] last revised on 2017. Testing performed by: [address] [address] Triglycerides 187(H) <=149 mg/dL RAMIRO Comment: Interpretive Data Ages [...] Pediatrics 2011;128:S213 2. NCEP Expert Panel. Circulation 2003;110:227 Current Interpretive Data was last revised on 2017. Testing performed by: [address] [address] HDL 42 >=40 mg/dL RAMIRO Comment: Interpretive [...] last revised on 2017. Testing performed by: [address] [address] LDL, calculated 74 <=129 mg/dL RAMIRO LEE Comment: Interpretive Data Ages [...] last revised on 2023. Testing performed by: [address] [address] Non-HDL Cholesterol 106 mg/dL RAMIRO LEE Comment: [...] last revised on 2017. Testing performed by: [address] [address] Chol/HDL ratio 4 RAMIRO LEE Comment:Testing performed by : [address] [address] Blood 08/18/2024 6:35 AM CDT 08/18/2024 7:03 AM CDT Alicia Palacio LAB BLOOD ORDERABLES Fi nal Result Performing Organization Address [facility] de Phone Number [address] [address] * PSA screen (11/27/2023 6:09 AM CDT) [...] AM CDT Alicia Palacio LAB BLOOD ORDERABLES [facility] Result Performing Organization Address [facility] de Phone Number [address] [address] * (ABNORMAL) Albumin Creatinine Ratio, Urine (11/27/2023 6:06 AM CDT) Albumin Ur 26.2 mg/L Comment: Interpretive Data No reference range established. Current interpretive data was last revised 2018. Creatinine Ur 85.8 mg/dL [facility] Comment: Interpretive Data No reference range established. Current interpretive data was last revised 2018. Albumin Creatinine Ratio, Ur 31(H) 1 - 29 mg/g [facility] Urine 11/27/2023 6:06 AM CDT 11/27/2023 7:53 AM CDT Aliciabrit Palacio NP LAB URINE ORDERABLES [facility] Result [place] [address] [facility] [place] [address] from Last 3 Months or Most Recently Relevant to Health Maintenance Insurance [facility] CHOICE [place] Care Teams Morning Babysitter Relationship Specialty Start Date End Date Alicia Palacio NP PCP - General Family Practice 12/12/19
[2024-12-10 04:45] VITALS: BP 130/74; PULSE 101; RESP 18; TEMP 36.7; O2SAT 97
--- NOTE | 2024-12-10 04:49 | ED_ITS ---
HPI - Extremity Problem General Chief complaint: Extremity Problem,Nontraumatic Stated complaint: arm pain Time Seen by Provider: 12/10/24 04:45 Source: patient Mode of arrival: ambulatory Limitations: no limitations History of Present Illness HPI Narrative: 54-year-old male with a history of hypertension, diabetes mellitus, dyslipidemia presents to the ED with 2 day history of -- right elbow pain and swelling. No fever or chills. No history of gout. MD Complaint: extremity pain Onset (ago): day(s) ( Two days) Pain Consistency: constant Location: right and elbow Quality: aching Radiation: none Relieving factors: nothing Exacerbating factors: nothing Associated symptoms: denies other symptoms Related Data Home Medications ?Medication ?Instructions ?Recorded ?Confirmed ?Last Taken ?Type atorvastatin 10 mg tablet 10 mg PO DAILY 04/22/2408/10 Unknown History glipizide 5 mg tablet 5 mg PO DAILY 04/22/2408/20 Unknown History metformin 1,000 mg tablet 1,000 mg PO DAILY 04/22/24 0 08/20/24 Unknown History pregabalin 75 mg capsule 75 mg PO DAILY 04/22/2408/10 Unknown History tirzepatide 2.5 mg/0.5 mL mg subcut 04/22/24 Unknown History subcutaneous pen injector (Mounjaro) Allergies Allergy/AdvReac Type Severity Reaction Status Date / Time No Known Allergies Allergy Verified 12/10/24 04:42 Review of Systems 2 Review of Systems: All systems reviewed & are unremarkable except as noted in HPI and below PMFSH Past Medical History Medical History (Updated 12/10/24 @ 06:14 by Daren Lockwood MD) Diabetes mellitus Exam 2 Narrative: afebrile Const: General: no acute distress Orientation/consciousness: patient oriented x3 Limitations: no limitations HENMT: Head: normal to inspection Ears: external ears normal F andres/Nose/Sinus: Normal external nose present Face and sinus: normal facial exam Mouth: Yes Normal oral and palatal mucosa present Throat: posterior oropharynx normal Eyes: Conjunctivae: conjunctivae normal Pupils: Equal, round and reactive pupils present EOM: EOMs intact bilaterally Direct Ophthalmoscopy: no photophobia Neck: Neck: normal visual inspection, no lymphadenopathy and no meningeal signs Chest: Chest palpation & inspection: normal inspection of the chest Resp: Effort & Inspection: normal respiratory effort Auscultation: clear to auscultation bilaterally Cardio: Rate: regular rate Rhythm: regular rhythm GI: GI Palp: Yes Soft to palpation Auscultation: normal bowel sounds O ther: no tenderness/rigidity /rebound : General: Yes no CVA tenderness Back/Spine/Pelvis: Back: no CVA tenderness Skin: General skin exam: normal color Other: right elbow swelling Neuro: General: patient oriented x3, moves all extremities, no meningeal signs, no focal motor deficits and CN's II-XI intact bilaterally Cranial nerves: Yes Nystagmus not present Speech: normal speech Gait exam (Neuro): Normal gait present Extrem: General: normal to inspection Other: right elbow swelling suggestive of olecranon bursitis Psych: Mental Status: mental status grossly normal Affect: normal affect Course Course Emergency Course: olecranon bursitis-- x-ray of the elbow is negative for fracture. Normal uric acid. Will treat with Augmentin and have the patient follow-up with primary care physician/ surgeon for aspiration Vital Signs Vital signs: Vital Signs Temperature 36.7 C 12/10/24 04:45 Pulse Rate 101 H 12/10/24 04:45 Respiratory Rate 18 12/10/24 04:45 Blood Pressure 130/74 12/10/24 04:45 Pulse Oximetry 97 12/10/24 04:45 Oxygen Delivery Room Air 12/10/24 04:45 Temperature 36.7 C 12/10/24 04:45 Pulse Rate 101 H 12/10/24 04:45 Respiratory Rate 18 12/10/24 04:45 Blood Pressure 130/74 12/10/24 04:45 Pulse Oximetry 97 12/10/24 04:45 Oxygen Delivery Room Air 12/10/24 04:45 MDM - Extremity (Nontraumatic) MDM Narrative Medical decision making narrative: olecranon bursitis Lab Data 12/10/24 05:11 12/10/24 05:11 Labs: Lab Results 12/10/24 12/10/24 Range/Units 05:11 05:12 WBC 11.4 H (4.8-10.8) K/mm3 RBC 5.03 (4.70-6.10) M/mm3 Hgb 15.2 (14.0-18.0) g/dL Hct 45.7 (40.0-54.0) % MCV 90.9 (78.0-102.0) fL MCH 30.2 (27.0-31.0) pg MCHC 33.3 (32-36) g/dL RDW 13.6 (11.6-14.4) % Plt Count 264 (150-420) K/mm3 MPV 11.1 H (8.7-11.0) fl Immature Gran % (Auto) 0.4 H (0.0-0.0) % Neut % (Auto) 63.8 (50.0-70.0) % Lymph % (Auto) 19.5 (18.0-42.0) % [place] % (Auto) 14.8 H (2.0-11.0) % Eos % (Auto) 1.1 (1.0-6.0) % Baso % (Auto) 0.4 (0.0-1.0) % Lymph # (Auto) 2.22 (1.10-4.50) K/mm3 [place] # (Auto) 1.68 H (0.10-0.90) K/mm3 Eos # (Auto) 0.13 (0.02-0.50) K/mm3 Baso # (Auto) 0.05 (0.00-0.10) K/mm3 Abs Immat Gran (auto) 0.04 H (0.00-0.00) K/mm3 Absolute Neuts (auto) 7.25 H (1.70-7.20) K/mm3 Absolute Nucleated RBC 0.00 (0.00-0.00) K/mm3 Nucleated RBC % 0.0 (0-0.0) % Sodium 140 (137-145) mmol/L Potassium 4.1 (3.4-5.0) mmol/L Chloride 105 (98-107) mmol/L Carbon Dioxide 21 L (22-30) mmol/L Anion Gap 14 H (4-12) mmol/L BUN 17 (9-20) mg/dL Creatinine 0.68 L (0.7-1.3) mg/dL Estim Creat Clear Calc 111 ml/min Estimated GFR > 60 (59 - ) Glucose 213 H (65-110) mg/dL Calculated Osmolality 297 H (285-295) mOsm/kg Lactic Acid 1.3 (0.4-2.0) mmol/L Uric Acid 6.1 (3.5-8.5) mg/dL Calcium 9.9 (8.4-10.2) mg/dL Total Bilirubin 0.7 (0.2-1.3) mg/dL AST 26 (17-59) U/L ALT 27 (6-50) U/L Alkaline Phosphatase 68 (38-126) U/L Total Protein 9.0 H (6.3-8.2) g/dL Albumin 4.9 (3.5-5.1) g/dL Discharge Plan Discharge Clinical Impression: Gouty bursitis of right olecranon, Hyperglycemia Patient Disposition: Home Condition: Stable Instructions: Antibiotic Form, Elbow Bursitis (ED) Additional Instructions: follow-up with surgery for aspiration Patient Language: Kiswahili Prescriptions: New amoxicillin-pot clavulanate 875-125 mg tablet 1 tablet PO Q12H Qty: 14 0RF No Action atorvastatin 10 mg tablet 10 mg PO DAILY metformin 1,000 mg tablet 1,000 mg PO DAILY glipizide 5 mg tablet 5 mg PO DAILY pregabalin 75 mg capsule 75 mg PO DAILY Mounjaro 2.5 mg/0.5 mL pen injector SUBCUT erythromycin 5 mg/gram (0.5 %) ointment 0.5 inch LEFT EYE QID Qty: 1 0RF polymyxin B sulf-trimethoprim 10,000 unit- 1 mg/mL drops 1 drp LEFT EYE Q3H 7 Days Qty: 10 0RF Rx Instructions: while awake; do not exceed 6 doses in 24 hours Jardiance 25 mg tablet 25 mg PO DAILY Qty: 30 0RF metformin 1,000 mg tablet 1,000 mg PO BID Qty: 60 0RF insulin glargine [Lantus Solostar U-100 Insulin] 100 unit/mL (3 mL) insulin pen 25 unit subcut QPM Qty: 15 0RF Follow-up/Referrals: UNKNOWN,DOCTOR [Primary Care Provider] Time of Disposition: 06:15
--- OUTSIDE RECORDS SUMMARY | 2024-12-10 04:58 | XMS_ITS | Encounter Summary ---
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
[2024-12-10 05:16] LABS: Hematocrit 45.7 % (40.0-54.0); Hemoglobin 15.2 g/dL (14.0-18.0); Immature Granulocyte Percent A 0.4 % (0.0-0.0); Lymphocytes Absolute Auto 2.22 K/mm3 (1.10-4.50); Mean Corpuscular HGB Conc 33.3 g/dL (32-36); Mean Corpuscular Hemoglobin 30.2 pg (27.0-31.0); Mean Corpuscular Volume 90.9 fL (78.0-102.0); Nucleated Red Blood Cells Absolute Auto 0.00 K/mm3 (0.00-0.00); Nucleated Red Blood Cells Perc 0.0 % (0-0.0); Platelet Count Result 264 K/mm3 (150-420); Red Blood Count 5.03 M/mm3 (4.70-6.10); White Blood Count 11.4 K/mm3 (4.8-10.8)
[2024-12-10 05:29] LABS: Alanine Aminotransferase 27 U/L (6-50); Albumin Level 4.9 g/dL (3.5-5.1); Alkaline Phosphatase 68 U/L (38-126); Anion Gap 14 mmol/L (4-12); Aspartate Amino Transferase 26 U/L (17-59); Bilirubin,Total 0.7 mg/dL (0.2-1.3); Blood Urea Nitrogen 17 mg/dL (9-20); Calcium 9.9 mg/dL (8.4-10.2); Carbon Dioxide 21 mmol/L (22-30); Chloride 105 mmol/L (98-107); Estimated CRCL calculation 111 ml/min; Estimated Glomerular Filt Rate > 60; Glucose 213 mg/dL (65-110); Osmolality Calculated 297 mOsm/kg (285-295); Potassium 4.1 mmol/L (3.4-5.0); Sodium 140 mmol/L (137-145); Total Protein 9.0 g/dL (6.3-8.2)
[2024-12-10 06:00] LABS: Uric Acid 6.1 mg/dL (3.5-8.5)
[2024-12-10 06:20] VITALS: BP 132/75; PULSE 95; RESP 16; TEMP 36.7; O2SAT 98
== END 2024-12-10 06:20 | disposition home or self-care (01) ==
PROVIDERS: Emergency Provider Internal Medicine Critical Care Medicine
DX: M10.021 Idiopathic gout, right elbow (principal); E11.65 Type 2 diabetes mellitus with hyperglycemia; I10 Essential (primary) hypertension; E78.5 Hyperlipidemia, unspecified
CPT/HCPCS: 36415; 73080; 80053; 83605; 84550; 85025; 99283